=== PATIENT | female | born 1960 ===

== ENCOUNTER 2020-03-15 16:38 | Inpatient (IN) | payer BC, SELFPAY ==
[2020-03-15] VITALS (7 sets, daily range): BP systolic 127–169; BP diastolic 66–100; PULSE 94–125; RESP 18–25; TEMP 36.2–36.8; O2SAT 94–100
--- NOTE | ~2020-03-15 | CT_ITS ---
EXAMINATION: CT brain wo con EXAM DATE: 03/15/2020 20:55 INDICATION: Altered mental status, auditory and visual hallucinations. TECHNIQUE: Spiral CT of the head was performed without contrast. Axial, coronal and sagittal images were reviewed. The dose-length product (DLP) for this examination was 605.33 mGy-cm. The exposure w as tailored according to patient size, and iterative reconstruction (ASIR) was used as additional dos e reduction technique. There is no prior study for comparison. FINDINGS: There is no acute intraparenchymal hemorrhage. No evidence of intraparenchymal brain mass lesion. No evidence of acute infarction. There is no mass effect or midline shift. The ventricles are normal in size. There are no extra-axial collections. There are no acute calvarial fractures. T he orbits are unremarkable. Soft tissue is unremarkable. The visualized sinuses and mastoid air les ls are well aerated. IMPRESSION: 1. No acute intracranial findings. Reviewed, dictated and finalized at location A.
--- NOTE | ~2020-03-15 | US_ITS ---
EXAMINATION:US venous doppler LE BI INDICATION:Lower extremity edema TECHNIQUE: Multiple grayscale, color flow and Doppler images of the bilateral lower extremity deep ve nous systems were obtained and reviewed. COMPARISON:No prior studies for comparison. FINDINGS: The common femoral, superficial femoral and popliteal veins demonstrate normal respiratory variation, augmentation and compressibility. Color flow is also seen within the posterior tibial, pe roneal, greater saphenous and profunda veins. IMPRESSION: 1: No lower extremity deep venous thrombosis. Reviewed, dictated and finalized at location A.
--- NOTE | ~2020-03-15 | XR_ITS ---
EXAMINATION: XR chest 1V portable EXAM DATE: 03/15/2020 19:18 INDICATION: Auditory and visual hallucinations. TECHNIQUE: Portable AP frontal chest x-ray was obtained. There is no prior study for comparison. FINDINGS: The lungs are hyperinflated which can be seen with chronic obstructive pulmonary disease (a clinical diagnosis of functional impairment), but is not diagnostic of it. The lungs are clear. The re are no pleural effusions. The cardiomediastinal silhouette is within normal limits. There is no pneumothorax suspected. The bones and soft tissues are unremarkable. IMPRESSION: 1. No acute cardiopulmonary findings. 2. Hyperinflation. Reviewed, dictated and finalized at location A.
--- NOTE | ~2020-03-15 | CT_ITS ---
EXAMINATION: CTA chest PE protocol DATE: 03/16/2020 10:51 INDICATION: Shortness of breath TECHNIQUE: Computed tomography angiography (CTA) of the chest was performed with 100 mL Omnipaque-350 intravenous contrast timed to evaluate the pulmonary arteries. Coronal maximum intensity projection 3D-reconstructions were created by the technologist. The dose-length product (DLP) was 264.58 mGy-cm. Automated exposure control and iterative reconstruction technique were employed. COMPARISON: None. FINDINGS: The pulmonary arteries are well-opacified. No pulmonary embolism is identified. There is se jessica emphysema. There is an area of subpleural scarring in the superior segment of the right lower lo be. No pleural effusion or pneumothorax is identified. The heart size is normal. Calcified coronary a rtery atherosclerosis is noted. There is enlargement of the main and central pulmonary arteries, cons istent with pulmonary hypertension. A right hilar lymph node is borderline size cysts of the liver me asure 9 cm in the right hepatic lobe. There is enlargement of the left adrenal gland which maintains its adreniform shape. IMPRESSION: 1. No pulmonary embolism. 2. Severe emphysema. Reviewed, dictated and finalized at location B.
[2020-03-15 18:35] LABS: Basophils Percent Auto 0.6 % (0.2-1.2); Eosinophils Absolute Auto 0.1 K/mm3 (0-0.3); Eosinophils Percent Auto 2.2 % (0-4.4); Hematocrit 36.8 % (37.0-47.0); Hemoglobin 11.3 g/dL (12.0-15.0); Immature Granulocyte Absolute 0.01 K/mm3 (0.00-0.031); Immature Granulocyte Percent A 0.2 % (0-0.5); Lymphocytes Absolute Auto 0.75 K/mm3 (0.9-3.2); Lymphocytes Percent Auto 15.3 % (18.3-44.2); Mean Corpuscular HGB Conc 30.7 g/dl (32-36); Mean Corpuscular Hemoglobin 29.7 pg (26-34); Mean Corpuscular Volume 96.8 fl (80-100); Monocytes Absolute Auto 0.4 K/mm3 (0.1-0.6); Monocytes Percent Auto 7.8 % (2.6-8.5); Neutrophils Absolute Auto 3.6 K/mm3 (1.3-6.7); Neutrophils Percent Auto 73.9 % (45.5-73.1); Platelet Count Result 141 k/mm3 (150-375); White Blood Count 4.9 K/mm3 (4.5-10.0)
[2020-03-15 18:49] LABS: Ethanol < 10 mg/dL (<10)
[2020-03-15 18:50] LABS: Alanine Aminotransferase 13 U/L (4-35); Albumin Level 4.3 g/dL (3.5-5.1); Alkaline Phosphatase 76 U/L (38-126); Anion Gap 5.99999 mmol/L (8-16); Aspartate Amino Transferase 23 U/L (14-36); Bilirubin,Total 0.4 mg/dL (0.2-1.3); Blood Urea Nitrogen 12 mg/dL (7-17); Calcium 9.3 mg/dL (8.4-10.2); Carbon Dioxide > 40 mmol/L (22-30); Chloride 86 mmol/L (98-107); Estimated Glomerular Filt Rate > 60; Glucose 131 mg/dL (65-105); Potassium 4.2 mmol/L (3.4-5.0); Sodium 132 mmol/L (137-145)
--- NOTE | 2020-03-15 19:02 | ED.AMS ---
HPI - Altered Mental Status General Chief Complaint: Altered Mental Status Stated Complaint: Hallucinations Time Seen by Provider: 03/15/20 19:01 History of Present Illness HPI narrative: Not doing well for the past week. Her daughter reports that she has not been eating she has also been seeing and hearing things that are not there. She reports feeling weak and admits to seeing things. No chest pain, Headaches, nausea, vomiting, fever, dysuria. Related Data Home Medications Medication Instructions Recorded Confirmed Combivent Respimat 1 puff INHALATION DAILY 03/16/20 03/16/20 albuterol sulfate [ProAir HFA] 2 puff INHALATION Q6H 03/16/20 03/16/20 azelastine 2 spray INTRANASAL DAILY 03/16/20 03/16/20 budesonide-formoterol 1 puff INHALATION DAILY 03/16/20 03/16/20 fluticasone propion-salmeterol 1 inh INHALATION DAILY 03/16/20 03/16/20 [Wixela Inhub] furosemide 20 mg PO DAILY 03/16/20 03/16/20 lisinopril 20 mg PO DAILY 03/16/20 03/16/20 potassium chloride 10 meq PO DAILY 03/16/20 03/16/20 simvastatin 20 mg PO DAILY 03/16/20 03/16/20 Allergies Allergy/AdvReac Type Severity Reaction Status Date / Time No Known Allergies Allergy Unverified 07/08/16 13:34 Review of Systems Review of Systems: All systems reviewed & are unremarkable except as noted in HPI and below Constitutional: Constitutional: Denies fever(s) and Reports weakness ENT: Reports dizziness Cardiovascular: Cardiovascular: Denies chest pain Respiratory: Respiratory: Reports dyspnea Gastrointestinal: Gastrointestinal: Denies abdominal pain and Denies nausea Genitourinary: Genitourinary: Denies dysuria Neurologic: Denies headache(s) and Denies focal weakness [facility] Past Medical History Medical History Chronic respiratory failure with hypoxia, on home O2 therapy COPD (chronic obstructive pulmonary disease) DVT (deep venous thrombosis) Latent tuberculosis Surgical History Surgical History Hx of cholecystectomy Family History Family History Mother Diabetes mellitus, Onset Age: 75 Cerebrovascular accident, Onset Age: 75 Father , of pneumonia Diabetes mellitus, Onset Age: 79 Sibling Dementia Cerebrovascular accident Diabetes mellitus Social History Social History Social History: The patient is a former smoker. She smoked up to 2 packs of cigarettes per day for 42 years. She quit smoking in July 2017. She was never much of a drinker. She has not drink any alcohol in several years. She denies illicit substance use. Primary care physician: Dr. Damien Keyes Code status: full code Smoking status: Former smoker Smoking end date: 07/07/17 Alcohol intake: never Substance use: never Additional living arrangements comments: she lives at home with her . Her daughter and 2 grandchildren lives with them and helps them out as her requires significant care. she also has another daughter with 4 other Grandchildren that live close by. 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
[2020-03-15 19:16] LABS: Add Urine Microscopic? YES; Appearance Urine Clear (Clear); Bilirubin Urine Negative (Negative); Blood Urine Negative (Negative); Color Urine Yellow (Yellow); Glucose Urine UA Negative (Negative); Ketones Urine Negative (Negative); Leukocyte Esterase Ur Negative LEU/UL (Negative); Mucus Urine Rare /lpf; Nitrate Urine Negative (Negative); Protein Urine Negative (Negative); RBC Urine 0-2 /hpf (0-2); Specific Grav Ur 1.015 (1.001-1.035); Squamous Epithelial Cell Urine Rare /hpf (Few); WBC Urine 0-3 /hpf
[2020-03-15 19:20] LABS: Prothrombin Time 13.1 Seconds (11.1-14.7)
[2020-03-15 19:21] LABS: Partial Thromboplastin Time 28.9 SECONDS (22.3-36.8)
[2020-03-15 19:29] LABS: Amphetamine Screen Urine Negative (Negative); Barbiturate Screen Urine Negative (Negative); Benzodiazepines Screen Urine Negative (Negative); Cannabinoid Screen Urine Negative (Negative); Cocaine Screen Urine Negative (Negative); Methadone Screen Urine Negative (Negative); Opiate Screen Urine Negative (Negative); Phencyclidine Screen Urine Negative (Negative)
[2020-03-15 19:45] LABS: Base Excess ABG 12.9 mEq/l (+/-2.0); Fractional Inspired Oxygen 32 %; HCO3 ABG 41.8 mEq/l (22.0-26.0); Oxygen Content ABG 15.6 %vol (16.0-22.0); Oxygen Saturation ABG 98.2 % (95.0-100.0); Oxyhemoglobin 97.4 % THb (90.0-100.0); PO2 ABG 129.6 mmHg (80.0-100.0); PO2 FiO2 Ratio Arterial Blood 4.05 %; Total Hemoglobin 11.2 g/dL (12.0-18.0); pH ABG 7.327 (7.350-7.450)
[2020-03-15 19:49] LABS: Device NASAL CANNULA; Modified Allen's Test Pass; PCO2 ABG 81.7 mmHg (35.0-45.0); Site Drawn RIGHT RADIAL
[2020-03-15] MEDS: SODIUM CHLORIDE 0.9% IV 500 ML 999 ML IV CONT (20:25)
[2020-03-15] MEDS: ALBUTEROL SULFATE NEB 2.5 MG/0.5 ML INH 10 MG INHALATION (22:17)
[2020-03-15] MEDS: IPRATROPIUM BR 0.02% INH SOLN 0.5 MG/2.5 ML VIAL 1 MG INHALATION (22:18)
[2020-03-15] MEDS: methylPREDNISolone SOD SUCC 125 MG VIAL IV PUSH (22:34)
--- NOTE | 2020-03-15 23:58 | ADMGEN ---
This patient, Ban Smith, was admitted to IMU Room 211-01 aat 2349. Patient/family oriented to hospital policies and general routines including ID bracelet, bed and alarms, visiting hours, pain management, procedures, bathroom and other care routines, personal items, smoking policy, room service/diet, and visiting hours. Valuables list has been completed. Information on how to activate the Rapid Response Team has been discussed. Patient/Family are encouraged to report perceived risks to care and to ask questions if they do not understand what they are told or what they should do.
[2020-03-16] VITALS (28 sets, daily range): BP systolic 118–142; BP diastolic 56–80; PULSE 58–138; RESP 18–24; TEMP 35.8–37.1; O2SAT 94–100; BMI 29.1
--- NOTE | 2020-03-16 | ECHO_ITS ---
Patient Info Name: Ban Smith Age: 59 years : 1960 Gender: Female Ht: 68 in Wt: 199 lbs BSA: 2.11 m2 HR: 132 bpm BP: 137 / 59 mmHg Heart Rhythm: Tachycardia Technical Quality: Fair Exam Date: 03/16/2020 2:00 PM Exam Location: [facility] Pulmonary Exam Room: 211 Patient Status: Inpatient Admit Date: 03/15/2020 Staff Ordering Physician: Gabriele Pratt MD Program Director/Air Personality: Silvia Leung RDCS Attending Provider: Stacey Starr DO Referring Physician: Santa LARIOS; Exam Type: CA echo doppler color flow Study Info Indications - copd edema sob Complete two-dimensional, color flow and Doppler transthoracic echocardiogram is performed. Summary 1. Complete two-dimensional, color flow and Doppler transthoracic echocardiogram is performed. 2. The left ventricular diastolic function is indeterminate due to tachycardia. 3. Left ventricular chamber dimension is normal. 4. Left ventricular systolic function is normal, estimated at >70%. 5. There is trace tricuspid valve regurgitation. 6. No pulmonary hypertension, estimated pulmonary arterial systolic pressure is 33 mmHg. Left Ventricle The left ventricular diastolic function is indeterminate due to tachycardia. Left ventricular chamber dimension is normal. Left ventricular systolic function is normal, estimated at >70%. There is no increased left ventricular wall thickness. Right Ventricle Right ventricular chamber dimension is normal. Right ventricular systolic function is normal. Left Atria Left atrial chamber dimension is normal. Right Atria Right atrial chamber dimension is normal. Aortic Valve The aortic valve is not well visualized. There is no aortic valve stenosis. There is no aortic valve regurgitation. Pulmonic Valve The pulmonic valve is not well visualized. Mitral Valve The mitral valve has normal leaflets. There is trace mitral valve regurgitation. Tricuspid Valve The tricuspid valve leaflets are normal. There is trace tricuspid valve regurgitation. No pulmonary hypertension, estimated pulmonary arterial systolic pressure is 33 mmHg. Pericardium/Pleural The pericardium appears normal. There is no pericardial effusion. Inferior Vena Cava Normal inferior vena cava with >50% collapse upon inspiration consistent with normal right atrial pressure, 5 mmHg. Aorta The aortic root size at the sinus of Valsalva is normal. Left Ventricular Outflow Tract Name Value Normal LVOT 2D LVOT Diameter 2.0 cm LVOT Doppler LVOT Peak Gradient 5 mmHg LVOT Mean Gradient 4 mmHg LVOT VTI 22 cm LVOT VTI/AV VTI Ratio 1.0 LVOT Stroke Volume 68 ml LVOT CO 17.6 l/min LVOT CI 8.4 l/min/m2 Pulmonic Valve Name Value Normal
[2020-03-16] MEDS: ALBUTEROL SULFATE NEB 2.5 MG/0.5 ML INH 5 MG INHALATION ×2 (02:36→08:48)
[2020-03-16] MEDS: IPRATROPIUM BR 0.02% INH SOLN 0.5 MG/2.5 ML VIAL INHALATION ×4 (02:37→21:15)
--- NOTE | 2020-03-16 02:42 | PM.IMHP ---
H&P: HPI History of Present Illness Date/Time: 03/16/20 02:42 Chief complaint: seeing and hearing things that are not there Narrative: Ban Smith is a 59 year old female with a past medical history of COPD and hypertension who presented to the ER with auditory and visual hallucinations.The patient reports that she has a blanket with her grandchildren's pitchers on it at home. She was C the pictures of her grandchildren, out of the blanket in get extremely large and twisted in appearance. She had been having the hallucinations on and off for about a week but they had been particularly vivid in the last 2 days. she was hopeful that hallucinations would get better during the day but instead the hallucinations does seem to progress. Now that she has been on the BiPAP from several hours her mentation has improved. she states that this time that she does not remember anything after she arrived to the ER until I woke her up this morning. She denies having any cough. She has not had any fevers or chills. she denies having any increased shortness of breath. She has become progressively more weak and has been having some falls. She has not hit her head or passed out. At the time of my evaluation the patient was alert and oriented times 4. history of still slightly limited as his difficulty here the patient's speak over the BiPAP. She reports that she is always on 3 L of oxygen. She has been on home O2 since around 2018 when she was hospitalized for pneumonia and DVTs. She denies any nausea or vomiting. She reports that since she was so restless at home and confused that she really has not eaten for the last 2 days. She reports that she feels hungry now in with like to eat. She usually does not have difficulty with urinary incontinence but did have an episode of urinary incontinence while I was at bedside. She denies any dysuria or hematuria. She has not had any recent ill contacts. She lives in the home with multiple family members but she herself has not been leaving the house. she reports that she has gotten so weak that she has started using a wheelchair. Review of Systems Review of Systems: Narrative: 12 systems were reviewed with pertinent positives and negatives per HPI. Except as documented in the HPI, all other systems were reviewed and are negative. [facility] Past Medical History Medical History (Updated 09/10/20 @ 05:38 by Stacey Starr DO) Chronic respiratory failure with hypoxia, on home O2 therapy COPD (chronic obstructive pulmonary disease) DVT (deep venous thrombosis) Latent tuberculosis Surgical History Surgical History (Updated 03/16/20 @ 05:16 by Stacey Starr DO) Hx of cholecystectomy Family History Family History (Updated 03/16/20 @ 04:56 by Stacey Starr DO) Mother Diabetes mellitus, Onset Age: 75 Cerebrovascular accident, Onset Age: 75 Father , of pneumonia Diabetes mellitus, Onset Age: 79 Sibling Dementia Cerebrovascular accident Diabetes mellitus Social History Social History (Updated 03/16/20 @ 05:26 by Stacey Starr DO) Social History: The patient is a former smoker. She smoked up to 2 packs of cigarettes per day for 42 years. She quit smoking in July 2017. She was never much of a drinker. She has not drink any alcohol in several years. She denies illicit substance use. Primary care physician: Dr. Damien Keyes Code status: full code Smoking status: Former smoker Smoking end date: 07/07/17 Alcohol intake: never Substance use: never Additional living arrangements comments: she lives at home with her . Her daughter and 2 grandchildren lives with them and helps them out as her requires significant care. she also has another daughter with 4 other Grandchildren that live close by. 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
[2020-03-16 03:17] LABS: Alveolar/Arterial O2 Gradient 64.6 mmHg; Base Excess ABG 9.5 mEq/l (+/-2.0); Carboxyhemoglobin 0.3 % THb (0-2.0); Fractional Inspired Oxygen 30 %; HCO3 ABG 36.8 mEq/l (22.0-26.0); Methemoglobin ABG 0.3 %THb (0-1.5); Oxygen Content ABG 14.9 %vol (16.0-22.0); Oxygen Saturation ABG 93.6 % (95.0-100.0); Oxyhemoglobin 93.7 % THb (90.0-100.0); PO2 ABG 72.3 mmHg (80.0-100.0); PO2 FiO2 Ratio Arterial Blood 2.41 %; Reduced Hemoglobin 5.7 %THb (0-5.0); Total Hemoglobin 11.3 g/dL (12.0-18.0); pH ABG 7.368 (7.350-7.450)
[2020-03-16 03:19] LABS: Device BIPAP; Modified Allen's Test Pass; PCO2 ABG 65.5 mmHg (35.0-45.0); Site Drawn RIGHT RADIAL
[2020-03-16 03:20] LABS: Expiratory Pressure 6 cmH2O; Inspiratory Pressure 12 cmH2O
[2020-03-16] MEDS: methylPREDNISolone SOD SUCC 125 MG VIAL 60 MG IV PUSH ×2 (05:19→15:57)
[2020-03-16] MEDS: ENOXAPARIN 100 MG/ML SYRINGE 90 MG SUB-Q (06:22)
[2020-03-16 07:00] LABS: Hemoglobin 10.5 g/dL (12.0-15.0); Mean Corpuscular HGB Conc 31.8 g/dl (32-36); Mean Corpuscular Hemoglobin 29.8 pg (26-34); Mean Corpuscular Volume 93.8 fl (80-100); Mean Platelet Volume 9.2 fl (7.4-10.4); Platelet Count Result 118 k/mm3 (150-375); Red Blood Count 3.52 M/mm3 (4.2-5.4); Red Cell Distribution Width 11.9 % (11.5-14.5); White Blood Count 3.4 K/mm3 (4.5-10.0)
[2020-03-16 07:11] LABS: Anion Gap 5 mmol/L (8-16); Blood Urea Nitrogen 12 mg/dL (7-17); Carbon Dioxide 37 mmol/L (22-30); Chloride 90 mmol/L (98-107); Estimated CRCL calculation 101 ml/min; Estimated Glomerular Filt Rate > 60; Glucose 143 mg/dL (65-105); Potassium 4.4 mmol/L (3.4-5.0); Sodium 132 mmol/L (137-145)
[2020-03-16 07:39] LABS: D Dimer 0.71 ug/mL (<0.48)
[2020-03-16] MEDS: SIMVASTATIN 20 MG TABLET PO (08:49)
[2020-03-16] MEDS: METOPROLOL SUCCINATE EXT REL 25 MG TABCR PO (08:49)
[2020-03-16] MEDS: POTASSIUM CHLORIDE 10 MEQ TABLET.ER PO (08:49)
[2020-03-16] MEDS: AZELASTINE HCL NASAL 0.1% 137 MCG/SPR 30 ML BTL 2 SPRAY NASAL (08:49)
[2020-03-16] MEDS: lisinopriL 20 MG TABLET PO (08:49)
[2020-03-16] MEDS: FUROSEMIDE 20 MG TABLET PO (08:49)
--- NOTE | 2020-03-16 09:24 | PC.NURSE ---
Addendum entered by Maribel Haas RN 03/16/20 09:26: JOSEPH VILLARREAL/Earl HAAS RN Original Note: PT WAS STRAIGHT CATHED Friday AT 1850 FOR URINE SAMPLE. 300MLS OBTAINED.
--- NOTE | 2020-03-16 15:11 | PM.IMPN ---
Progress Note: A&P Assessment and Plan (1) Acute on chronic respiratory failure with hypoxia and hypercapnia: Code(s): J96.21 - Acute and chronic respiratory failure with hypoxia; J96.22 - Acute and chronic respiratory failure with hypercapnia Status: Acute Assessment and Plan: The patient's ABG has improved with BiPAP use. saturating well and mentating well now on 3 L nasal cannula Patient may use the BiPAP intermittently after that time. (2) COPD exacerbation: Code(s): J44.1 - Chronic obstructive pulmonary disease with (acute) exacerbation Status: Acute Assessment and Plan: Will continue IV Solu-Medrol scheduled albuterol and Atrovent. no antibiotics since there is no obvious indication of infectious process (3) Bilateral lower extremity edema: Code(s): R60.0 - Localized edema Status: Acute Assessment and Plan: I suspect that this is due to chronic lymphedema. It sounds as if the patient has had difficulty with swelling in her legs since 2018. It is unclear at this time if her lower extremity has worsened from baseline. bilateral lower extremity venous Dopplers are negative for DVT. got 1 dose of Lovenox 1 milligram/kilogram. D-dimer was slightly elevated and with negative venous Doppler CTA of the chest was performed which revealed no pulmonary emboli. echocardiogram is pending (4) Tachycardia: Code(s): R00.0 - Tachycardia, unspecified Status: Acute Assessment and Plan: likely in part due to albuterol use. check echo and resumed the patient's home metoprolol today.. Subjective Date/time seen: 03/16/20 15:11 Interval history: Date of visit 03/16. 59-year-old white female COPD and chronic peripheral edema admitted with altered mental status found to be hypoxic hypercapnic with acute on chronic respiratory failure. Admitted for the same and with aggressive pulmonary treatment steroids updraft and BiPAP has improved. Feels much better this a.m.. Minimal cough no fever chills Exam Narrative: Exam Narrative: PHYSICAL EXAM: blood pressure 124/66 pulse is 110 saturating 100% on 3 L nasal cannula now afebrile General: no acute distress, lying with the head of bed 35?, HEENT: neck supple pupils equal reactive with sclera anicteric Respiratory: faint end-expiratory wheezing bilaterally, Cardiovascular: sinus tachycardia, 2+ bilateral radial pulses Gastrointestinal: soft, nontender, positive bowel Skin: no breakdown rashes Musculoskeletal: lymphedema bilateral lower extremities Neurological: alert and oriented times 3-4, speech is clear Psychiatric: appropriate mood and affect, pleasant and cooperative : incontinent of urine, depends in place Hematologic/lymphatic: no petechiae, bruising or significant lymphadenopathy Objective Data Vital Signs Vital Signs: Vital Signs - 24 hr 03/15/20 18:30 03/15/20 20:35 03/15/20 22:05 Temperature 36.6 C Pulse Rate 115 H 94 121 H Respiratory Rate 22 H 21 H 25 H Blood Pressure 140/66 130/80 Pulse Oximetry 100 99 97 03/15/20 22:19 03/15/20 23:49 03/15/20 23:55 Temperature 36.2 C L 36.8 C Pulse Rate 117 H 120 H 112 H Respiratory Rate 23 H 23 H 25 H Blood Pressure 127/66 130/80 Pulse Oximetry 99 96 03/15/20 23:56 03/16/20 00:00 03/16/20 02:00 Temperature Pulse Rate 102 H 106 H 101 H Respiratory Rate 24 H 24 H Blood Pressure Pulse Oximetry 94 94 03/16/20 02:37 03/16/20 02:46 03/16/20 04:00 Temperature Pulse Rate 100 97 115 H Respiratory Rate 21 H 20 19 Blood Pressure Pulse Oximetry 96 100 03/16/20 04:08 03/16/20 06:00 03/16/20 08:00 Temperature 36.2 C L Pulse Rate 109 H 116 H 122 H Respiratory Rate 19 Blood Pressure 142/70 H Pulse Oximetry 100 03/16/20 08:16 03/16/20 08:49 03/16/20 08:53 Temperature 36.4 C L Pulse Rate 123 H 125 H Respiratory Rate 20 Blood Pressure 133/80 Pulse Oximetry 96 98
[2020-03-17] VITALS (15 sets, daily range): BP systolic 137–150; BP diastolic 71–77; PULSE 86–131; RESP 16–20; TEMP 36.3–36.7; O2SAT 90–97
[2020-03-17] MEDS: methylPREDNISolone SOD SUCC 125 MG VIAL 60 MG IV PUSH ×2 (00:07→09:17)
[2020-03-17 04:30] LABS: Hematocrit 32.2 % (37.0-47.0); Hemoglobin 10.4 g/dL (12.0-15.0); Immature Granulocyte Absolute 0.02 K/mm3 (0.00-0.031); Immature Granulocyte Percent A 0.5 % (0-0.5); Immature Reticulocyte Fraction 8.2 % (3.0-15.9); Lymphocytes Absolute Auto 0.37 K/mm3 (0.9-3.2); Lymphocytes Percent Auto 8.4 % (18.3-44.2); Mean Corpuscular HGB Conc 32.3 g/dl (32-36); Mean Corpuscular Hemoglobin 29.8 pg (26-34); Mean Corpuscular Volume 92.3 fl (80-100); Mean Platelet Volume 9.2 fl (7.4-10.4); Monocytes Absolute Auto 0.1 K/mm3 (0.1-0.6); Monocytes Percent Auto 3.2 % (2.6-8.5); Neutrophils Absolute Auto 3.9 K/mm3 (1.3-6.7); Neutrophils Percent Auto 87.9 % (45.5-73.1); Platelet Count Result 143 k/mm3 (150-375); Red Blood Count 3.49 M/mm3 (4.2-5.4); Red Cell Distribution Width 11.8 % (11.5-14.5); Reticulocyte Hemoglobin Conten 32.5 pg (28.2-35.7); Reticulocyte Percent 2.02 % (0.7-4.3); Reticulocytes Absolute 0.07 B/L (32.2-175.7); White Blood Count 4.4 K/mm3 (4.5-10.0)
[2020-03-17 04:53] LABS: Anion Gap 1.99999 mmol/L (8-16); Blood Urea Nitrogen 21 mg/dL (7-17); Calcium 8.8 mg/dL (8.4-10.2); Carbon Dioxide > 40 mmol/L (22-30); Chloride 89 mmol/L (98-107); Estimated CRCL calculation 99 ml/min; Estimated Glomerular Filt Rate > 60; Glucose 163 mg/dL (65-105); Lactate Dehydrogenase 329 U/L (313-618); Potassium 4.2 mmol/L (3.4-5.0); Sodium 131 mmol/L (137-145)
[2020-03-17 05:30] LABS: Thyroid Stimulating Hormone Reflex 0.081 uIU/mL (0.465-4.68)
[2020-03-17 06:39] LABS: Free T4 Free Thyroxine Reflex 1.44 ng/dL (0.78-2.19)
[2020-03-17] MEDS: IPRATROPIUM BR 0.02% INH SOLN 0.5 MG/2.5 ML VIAL INHALATION ×3 (08:02→19:01)
[2020-03-17 08:43] LABS: Total Triiodothyronine (T3) 0.84 NG/ML (0.97-1.69)
[2020-03-17] MEDS: FUROSEMIDE 20 MG TABLET PO (09:16)
[2020-03-17] MEDS: POTASSIUM CHLORIDE 10 MEQ TABLET.ER PO (09:16)
[2020-03-17] MEDS: ACETAMINOPHEN 325 MG TABLET 650 MG PO ×2 (09:16→19:02)
[2020-03-17] MEDS: lisinopriL 20 MG TABLET PO (09:16)
[2020-03-17] MEDS: ENOXAPARIN 40 MG/0.4 ML SYRINGE SUB-Q (09:17)
[2020-03-17] MEDS: METOPROLOL SUCCINATE EXT REL 50 MG TABCR PO (09:17)
--- NOTE | 2020-03-17 12:16 | PC.NURSE ---
This patient, Ban Smith, was received from [IMU ] on 03/17/20 at 1215. Personal belongings list checked and signed. Patient/family oriented to unit policies and routines
--- NOTE | 2020-03-17 12:19 | PC.NURSE ---
This patient, Ban Smith, was transferred to [facility] on 03/17/20 at 1210. Personal belongings sent with patient. Belongings list checked and signed with receiving. Report given to NATHAN Lynch. Appropriate documentation sent with patient.
--- NOTE | 2020-03-17 15:30 | PM.IMPN ---
Progress Note: A&P Assessment and Plan (1) Acute on chronic respiratory failure with hypoxia and hypercapnia: Code(s): J96.21 - Acute and chronic respiratory failure with hypoxia; J96.22 - Acute and chronic respiratory failure with hypercapnia Status: Acute Assessment and Plan: The patient's ABG improved with BiPAP use and transitioned to NC . saturating well and mentating well now on 3 L nasal cannula . (2) COPD exacerbation: Code(s): J44.1 - Chronic obstructive pulmonary disease with (acute) exacerbation Status: Acute Assessment and Plan: Will continue IV Solu-Medrol with further taper and po 03/18 , continue scheduled albuterol and Atrovent. no antibiotics since there is no obvious indication of infectious process,, - CTA (3) Bilateral lower extremity edema: Code(s): R60.0 - Localized edema Status: Acute Assessment and Plan: I suspect that this is due to chronic lymphedema. It sounds as if the patient has had difficulty with swelling in her legs since 2018. It is unclear at this time if her lower extremity has worsened from baseline. bilateral lower extremity venous Dopplers are negative for DVT. got 1 dose of Lovenox 1 milligram/kilogram. D-dimer was slightly elevated and with negative venous Doppler CTA of the chest was performed which revealed no pulmonary emboli. echocardiogram normal EF with no Pul HTN and diastolic function inderterminate (4) Tachycardia: Code(s): R00.0 - Tachycardia, unspecified Status: Acute Assessment and Plan: resumed the patient's home metoprolol and increased to 50 qd. THS decreased with normal T4 so could be subclinical hyperthyroid too.. Subjective Date/time seen: 03/17/20 15:30 Interval history: Date of visit 03/17. 59-year-old white female COPD and chronic peripheral edema admitted with altered mental status found to be hypoxic hypercapnic with acute on chronic respiratory failure. Admitted for the same and with aggressive pulmonary treatment steroids updraft and BiPAP has improved. Feels much better this a.m.. Minimal cough no fever chills. Mentally clear Exam Narrative: Exam Narrative: PHYSICAL EXAM: blood pressure 150/76 pulse is 96 saturating 97% on 3 L nasal cannula now afebrile General: no acute distress, lying with the head of bed 35?, HEENT: neck supple pupils equal reactive with sclera anicteric Respiratory: clear distant BS, Cardiovascular: sinus tachycardia, 2+ bilateral radial pulses Gastrointestinal: soft, nontender, positive bowel Skin: no breakdown rashes Musculoskeletal: lymphedema bilateral lower extremities Neurological: alert and oriented times 4, speech is clear Psychiatric: appropriate mood and affect, pleasant and cooperative : incontinent of urine, depends in place Objective Data Vital Signs Vital Signs: Vital Signs - 24 hr 03/16/20 15:59 03/16/20 16:00 03/16/20 16:58 Temperature 36.2 C L Pulse Rate 124 H 125 H 120 H Respiratory Rate 22 H Blood Pressure 118/58 L Pulse Oximetry 100 03/16/20 17:57 03/16/20 19:53 03/16/20 20:00 Temperature 37.1 C Pulse Rate 126 H 121 H 115 H Respiratory Rate 20 20 Blood Pressure 135/76 Pulse Oximetry 97 97 03/16/20 21:18 03/16/20 22:00 03/16/20 23:57 Temperature 35.8 C L Pulse Rate 80 120 H 58 L Respiratory Rate 24 H 18 Blood Pressure 120/56 L Pulse Oximetry 97 03/17/20 00:00 03/17/20 02:00 03/17/20 04:00 Temperature Pulse Rate 110 H 99 105 H Respiratory Rate 18 18 Blood Pressure Pulse Oximetry 97 94 03/17/20 04:28 03/17/20 06:00 03/17/20 08:00 Temperature 36.3 C L 36.6 C Pulse Rate 105 H 86 116 H Respiratory Rate 18 18 Blood Pressure 137/76 150/77 H Pulse Oximetry 94 97 03/17/20 08:03 03/17/20 08:13 03/17/20 09:17 Temperature Pulse Rate 108 H 106 H 131 H Respiratory Rate 18 18 Blood Pressure Pulse Oximetry 95 03/17/20 14
[2020-03-17] MEDS: predniSONE 20 MG TABLET PO (18:21)
[2020-03-18] VITALS (7 sets, daily range): BP systolic 131; BP diastolic 74; PULSE 88–109; RESP 18–20; TEMP 36.8; O2SAT 93–98
[2020-03-18] MEDS: IPRATROPIUM BR 0.02% INH SOLN 0.5 MG/2.5 ML VIAL INHALATION ×2 (01:56→08:00)
[2020-03-18] MEDS: predniSONE 20 MG TABLET 40 MG PO (08:29)
[2020-03-18] MEDS: AZELASTINE HCL NASAL 0.1% 137 MCG/SPR 30 ML BTL 2 SPRAY NASAL (08:29)
[2020-03-18] MEDS: FUROSEMIDE 20 MG TABLET PO (08:30)
[2020-03-18] MEDS: lisinopriL 20 MG TABLET PO (08:30)
[2020-03-18] MEDS: SIMVASTATIN 20 MG TABLET PO (08:30)
[2020-03-18] MEDS: ENOXAPARIN 40 MG/0.4 ML SYRINGE SUB-Q (08:30)
[2020-03-18] MEDS: METOPROLOL SUCCINATE EXT REL 50 MG TABCR PO (08:31)
[2020-03-18] MEDS: POTASSIUM CHLORIDE 10 MEQ TABLET.ER PO (08:32)
--- NOTE | 2020-03-18 11:03 | PC.NURSE ---
flu shot given upon discharge.
--- NOTE | 2020-03-19 18:05 | PM.DS ---
DS: Admitting Diagnosis Admitting Diagnosis Admitting Diagnosis: seeing and hearing things that are not there DS: Discharge Diagnosis Discharge Diagnosis (1) Acute on chronic respiratory failure with hypoxia and hypercapnia: Code(s): J96.21 - Acute and chronic respiratory failure with hypoxia; J96.22 - Acute and chronic respiratory failure with hypercapnia Status: Acute Assessment and Plan: The patient's ABG improved with BiPAP use and transitioned to NC . saturating well and mentating well now on 3 L nasal cannula her usual rate and saturating 98% at discharge . (2) COPD exacerbation: Code(s): J44.1 - Chronic obstructive pulmonary disease with (acute) exacerbation Status: Acute Assessment and Plan: IV Solu-Medrol with further taper and po 03/18 for 1 week taper post discharge , continued scheduled albuterol and Atrovent. no antibiotics since there is no obvious indication of infectious process,, negative CTA for PE (3) Bilateral lower extremity edema: Code(s): R60.0 - Localized edema Status: Acute Assessment and Plan: I suspect that this is due to chronic lymphedema. It sounds as if the patient has had difficulty with swelling in her legs since 2018. It is unclear at this time if her lower extremity has worsened from baseline. bilateral lower extremity venous Dopplers are negative for DVT. and CTA of the chest was negative For PE echocardiogram normal EF with no Pul HTN and diastolic function inderterminate (4) Tachycardia: Code(s): R00.0 - Tachycardia, unspecified Status: Acute Assessment and Plan: resumed the patient's home metoprolol XL and increased to 50 qd. THS decreased with normal T4 so could be subclinical hyperthyroid too.. DS: Summary Hospital Course Hospital Course: 59-year-old white female admitted with hallucinations. She is found to be hypercarbic and hypoxic with acute on chronic respiratory failure. With short course of BiPAP but and treating for COPD with exacerbation with steroids and updrafts her symptoms resolved and never returned. She will have a short taper oral prednisone on discharge. Pulse remained close to 100 or above and metoprolol XL was increased to 50 daily. Free T4 was normal but TSH was low normal suggest and possible subclinical hyperthyroidism. Echo revealed normal ejection fraction with no pulmonary hypertension but diastolic function was indeterminate due to tachycardia she will follow-up Dr. mars's within the next 2 weeks Time Spent with Patient Time attestation: Total time spent providing and/or coordinating discharge services: 35 minutes Exam Narrative: Exam Narrative: condition on discharge blood pressure 130/74 pulse is 90 saturating 98% on 3 L nasal cannula lungs clear prolonged expiratory phase but no wheezing or consolidation CV tachy but no murmurs abdomen soft nontender extremities chronic almost lymphedema type picture neuro alert oriented x4 and no further hallucinations after admission Discharge Plan Discharge Attending physician on discharge: Gabriele Pratt Discharging Clinician: Gabriele Pratt Patient Disposition: Home, Self-Care Activity: as tolerated Diet: low sodium Patient Instructions: Antibiotic Form, Heart Failure (ED), Emphysema (DC) Stand Alone Forms: General Discharge Information Follow-up/Referrals: Harms,Damien Gonzalez M.D. [Primary Care Provider] - 2 Weeks Discharge Medications: New metoprolol succinate 50 mg Tablet Extended Release 24 Hr 50 mg PO DAILY Qty: 30 RF: 0 prednisone 20 mg tablet 20 mg PO DIRECTED Qty: 9 RF: 0 Continued fluticasone propion-salmeterol [Wixela Inhub] 250-50 mcg/dose blister with device 1 inh INHALATION DAILY RF: 0 lisinopril 20 mg tablet 20 mg PO DAILY RF: 0 potassium chloride 10 mEq tablet extended release 10 meq PO DAILY RF: 0 simvastatin 2
== END 2020-03-18 12:08 | disposition home or self-care (01) | DRG 189 ==
LOC: ANHED 22:53 → ANHIMU 03-16 01:17 → ANH3MEDSUR 03-18 08:58 → ANHIMU 03-20 16:19
PROVIDERS: Emergency Medicine; Admitting Provider Internal Medicine; Emergency Provider Emergency Medicine; PCP Family Medicine; Visit Provider Internal Medicine
DX: J96.21 Acute and chronic respiratory failure with hypoxia (principal); J44.1 Chronic obstructive pulmonary disease with (acute) exacerbation; D61.818 Other pancytopenia; Z99.81 Dependence on supplemental oxygen; J96.22 Acute and chronic respiratory failure with hypercapnia; I89.0 Lymphedema, not elsewhere classified; R00.0 Tachycardia, unspecified; Z22.7 Latent tuberculosis; Z23 Encounter for immunization; Z87.891 Personal history of nicotine dependence; Z86.718 Personal history of other venous thrombosis and embolism
CPT/HCPCS: 36415; 36600; 70450; 71045; 71275; 80048; 80053; 80307; 81001; 82375; 82607; 82805; 83050; 83615; 84439; 84443; 84480; 85025; 85027; 85046; 85380; 85610; 85730; 90471; 90686; 93306; 93970; 94002; 94640; 94660; 97161; 97165; 97535; 99285; A9270; G0008; J1650; J2930; J7040; J7512; Q9967

== ENCOUNTER 2021-08-03 18:55 | Inpatient (IN) | payer OTHER, SELFPAY ==
--- NOTE | ~2021-08-03 | XR_ITS ---
EXAMINATION: XR chest 1V portable DATE: 08/04/2021 02:03 INDICATION: Shortness of breath. TECHNIQUE: A single frontal view of the chest was obtained. COMPARISON: Chest single view 03/15/2020, chest CT 03/16/2020 FINDINGS: The lungs are hyperexpanded with lucencies, consistent with emphysema. There are peripheral airspace opacities in the mid and lower lung zones. No pleural effusion or pneumothorax. The heart s ize is normal. IMPRESSION: 1. Airspace opacities in the peripheral mid and lower lung zones, consistent with mild pulmonary dhaval a versus pneumonia. 2. Severe emphysema. Reviewed, dictated and finalized at location A. TH ADVISOR IMPRESSION: 1. Airspace opacities in the peripheral mid and lower lung zones, consistent wi th mild pulmonary edema versus pneumonia. 2. Severe emphysema.
--- NOTE | ~2021-08-03 | CT_ITS ---
EXAMINATION: CT brain wo con DATE: 08/06/2021 13:19 INDICATION: Hallucinations. TECHNIQUE: Computed tomography (CT) of the head was performed without intravenous contrast. The mA wa s adjusted according to patient size. Iterative reconstruction technique was employed. The dose-lengt h product was 605.33 mGy-cm. COMPARISON: Head CT 03/15/2020 FINDINGS: There are scattered areas of low attenuation in the cerebral white matter. There is no intr acranial hemorrhage, acute infarction, or abnormal intracranial mass lesion. The ventricles are fer l in size. The paranasal sinuses are clear. The orbits are normal. The mastoid air cells are normal. IMPRESSION: 1. Stable mild nonspecific cerebral white matter disease, which likely represents chronic small vesse l ischemic disease. Reviewed, dictated and finalized at location A. S TENDER STAR SIGNAL IMPRESSION: 1. Stable mild nonspecific cerebral white matter disease, which likely represen ts chronic small vessel ischemic disease.
--- NOTE | ~2021-08-03 | XR_ITS ---
EXAMINATION: XR chest 2V DATE: 08/07/2021 15:53 INDICATION: Respiratory failure TECHNIQUE: frontal and lateral views of the chest were obtained. COMPARISON: Chest radiograph dated 08/04/[address] dated 03/16/2020 FINDINGS: Hyperexpansion of the lungs with increased lucency in the upper lung zones and retrocardiac clear spa ce with associated architectural distortion consistent with emphysema better appreciated on CT dated 03/16/20. Unchanged mild biapical pleural-parenchymal scarring. Mild peripheral reticular opacities at the bilateral lung bases. No pleural effusion or pneumothorax. Heart size is normal. Osteopenia with mild thoracic kyphosis and mild anterior wedging of T12 which appears chronic and at T10 which appea rs new since the prior CT. IMPRESSION: 1. Mild peripheral reticular opacities at the bilateral lung bases which could represent mild pulmona ry edema, atelectasis or pneumonia. 2. Severe emphysema. 3. Age-indeterminate T10 compression fracture with 20% anterior vertebral body likely loss which is n ew since 03/16/2020. Reviewed, dictated and finalized at location A. TAL FINISHER IMPRESSION: 1. Mild peripheral reticular opacities at the bilateral lung bases which could represent mild pulmonary edema, atelectasis or pneumonia. 2. Severe emphysema. 3. Age-indeterminate T10 compression fracture with 20% anterior vertebral body likely loss which is new since 03/16/2020.
[2021-08-03 19:02] VITALS: BP 142/71; PULSE 91; RESP 19; TEMP 37; O2SAT 99
[2021-08-04] VITALS (119 sets, daily range): BP systolic 94–138; BP diastolic 49–113; PULSE 60–109; RESP 13–28; TEMP 35.9–36.4; O2SAT 92–100
--- NOTE | 2021-08-04 01:17 | ECG_ITS ---
Measurements Intervals Coleman Rate: 98 P: 79 NM: 174 QRS: 75 QRSD: 92 T: 66 QT: 317 QTc: 405 Interpretive Statements SINUS RHYTHM MINIMAL Q WAVES- INF/LAT LEADS BASELINE ARTIFACT- I, II, III, AVR, AVL, AVF, V2-V5 BORDERLINE ECG Electronically Signed On 08-04-2021 7:56:36 ACCOUNTING REPRESENTATIVE by Callum Valencia D.O.
[2021-08-04 01:48] LABS: Alveolar/Arterial O2 Gradient 21.9 mmHg; Base Excess ABG 18.7 mEq/l (+/-2.0); Fractional Inspired Oxygen 34 %; HCO3 ABG 49.4 mEq/l (22.0-26.0); Oxygen Content ABG 16.6 %vol (16.0-22.0); Oxyhemoglobin 96.8 % THb (90.0-100.0); PO2 ABG 105.4 mmHg (80.0-100.0); Total Hemoglobin 12.1 g/dL (12.0-18.0); pH ABG 7.317 (7.350-7.450)
[2021-08-04 01:50] LABS: Device NASAL CANNULA; Liters per Minute 3.5 LPM; Modified Allen's Test Pass; PCO2 ABG 98.8 mmHg (35.0-45.0); Site Drawn LEFT RADIAL
[2021-08-04 01:53] LABS: Hematocrit 38.4 % (37.0-47.0); Hemoglobin 11.8 g/dL (12.0-15.0); Immature Granulocyte Absolute 0.02 K/mm3 (0.00-0.031); Immature Granulocyte Percent A 0.5 % (0-0.5); Lymphocytes Absolute Auto 0.31 K/mm3 (0.9-3.2); Lymphocytes Percent Auto 7.7 % (18.3-44.2); Mean Corpuscular HGB Conc 30.7 g/dl (32-36); Mean Corpuscular Hemoglobin 28.6 pg (26-34); Mean Corpuscular Volume 93.2 fl (80-100); Mean Platelet Volume 9.2 fl (7.4-10.4); Monocytes Absolute Auto 0.1 K/mm3 (0.1-0.6); Monocytes Percent Auto 1.5 % (2.6-8.5); Neutrophils Absolute Auto 3.6 K/mm3 (1.3-6.7); Neutrophils Percent Auto 90.3 % (45.5-73.1); Platelet Count Result 160 k/mm3 (150-375); Red Blood Count 4.12 M/mm3 (4.2-5.4); Red Cell Distribution Width 12.7 % (11.5-14.5)
[2021-08-04 02:13] LABS: Lactic Acid Reflex 0.7 mmol/L (0.7-2.1)
[2021-08-04 02:13] LABS: Magnesium 1.7 mg/dL (1.6-2.3)
[2021-08-04 02:15] LABS: Alanine Aminotransferase 19 U/L (4-35); Albumin Level 4.4 g/dL (3.5-5.1); Alkaline Phosphatase 68 U/L (38-126); Aspartate Amino Transferase 23 U/L (14-36); Bilirubin,Total 0.6 mg/dL (0.2-1.3); Blood Urea Nitrogen 25 mg/dL (7-17); Calcium 9.4 mg/dL (8.4-10.2); Carbon Dioxide > 40 mmol/L (22-30); Chloride 83 mmol/L (98-107); Estimated Glomerular Filt Rate > 60; Glucose 153 mg/dL (65-110); Potassium 4.7 mmol/L (3.4-5.0); Sodium 129 mmol/L (137-145)
[2021-08-04 02:23] LABS: NT Pro B Type Natriuretic Pept 386 pg/mL (5-100)
[2021-08-04 02:23] LABS: Add Urine Microscopic? YES; Appearance Urine Clear (Clear); Bilirubin Urine Negative (Negative); Blood Urine Negative (Negative); Color Urine Yellow (Yellow); Glucose Urine UA Negative (Negative); Ketones Urine Negative (Negative); Leukocyte Esterase Ur Negative LEU/UL (Negative); Mucus Urine Rare /lpf; Nitrate Urine Negative (Negative); Protein Urine Negative (Negative); RBC Urine 0-2 /hpf (0-2); Specific Grav Ur 1.023 (1.001-1.035); WBC Urine 0-3 /hpf
[2021-08-04 02:25] LABS: Troponin I < 0.012 ng/mL (0.000-0.034)
[2021-08-04 02:27] LABS: INR 0.9; Prothrombin Time 12.4 Seconds (11.1-14.7)
[2021-08-04 02:28] LABS: Partial Thromboplastin Time 27.6 SECONDS (22.3-36.8)
[2021-08-04 02:51] LABS: SARS-CoV-2 RNA PCR Negative
--- NOTE | 2021-08-04 02:54 | ED.GENADULT ---
HPI - General Adult General Chief complaint: Shortness of Breath/Dyspnea Stated complaint: WEAKNESS Time Seen by Provider: 08/04/21 01:13 History of Present Illness HPI narrative: Patient 61-year-old female presents the emergency department with chief complaint of shortness of breath patient reports she has history of COPD and is started having visual hallucinations the patient reports she gets like this whenever her carbon dioxide level started going up patient states last time she was like this she required BiPAP patient does report that she sleeps with BiPAP on at night but has not been wanting to wear it because it made her anxious Related Data Home Medications Medication Instructions Recorded Confirmed Combivent Respimat 1 puff INHALATION DAILY 03/16/20 03/16/20 albuterol sulfate [ProAir HFA] 2 puff INHALATION Q6H 03/16/20 03/16/20 budesonide-formoterol 1 puff INHALATION DAILY 03/16/20 03/16/20 fluticasone propion-salmeterol 1 inh INHALATION DAILY 03/16/20 03/16/20 [Wixela Inhub] furosemide 20 mg PO DAILY 03/16/20 03/16/20 potassium chloride 10 meq PO DAILY 03/16/20 03/16/20 Allergies Allergy/AdvReac Type Severity Reaction Status Date / Time No Known Allergies Allergy Verified 08/04/21 01:04 Review of Systems Review of Systems: A 10 system review of systems was completed on the patient and is negative except for what is stated in the HPI. Nursing and ancillary documentation was reviewed. PMFSH Past Medical History Medical History (Updated 08/04/21 @ 02:57 by Endy Mendoza MD) Chronic respiratory failure with hypoxia, on home O2 therapy COPD (chronic obstructive pulmonary disease) DVT (deep venous thrombosis) Latent tuberculosis Surgical History Surgical History Hx of cholecystectomy Family History Family History Mother Diabetes mellitus, Onset Age: 75 Cerebrovascular accident, Onset Age: 75 Father , of pneumonia Diabetes mellitus, Onset Age: 79 Sibling Dementia Cerebrovascular accident Diabetes mellitus Social History Social History Social History: The patient is a former smoker. She smoked up to 2 packs of cigarettes per day for 42 years. She quit smoking in July 2017. She was never much of a drinker. She has not drink any alcohol in several years. She denies illicit substance use. Primary care physician: Dr. Damien Keyes Code status: full code Smoking status: Former smoker Smoking end date: 07/07/17 Alcohol intake: never Substance use: never Additional living arrangements comments: she lives at home with her . Her daughter and 2 grandchildren lives with them and helps them out as her requires significant care. she also has another daughter with 4 other Grandchildren that live close by. 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 HEAD: Normocephalic, atraumatic. EYES: PERRLA and EOMI. ENT: Nares clear, no rhinorrhea or epistaxis. Mucous membranes moist. NECK: Supple. CHEST: Clear to auscultation. No respiratory distress. HEART: Regular rate and rhythm. No murmur heard. Normal peripheral pulses. ABDOMEN: Soft, nontender, nondistended, normal active bowel sounds. EXTREMITIES: Normal range of motion. No edema. SKIN: Warm, dry, no rash. NEURO: No focal deficits. Alert and oriented x3. PSYCH: Normal mood and affect. Course Vital Signs Vital signs: Vital Signs Temperature 37.0 C 08/03/21 19:02 Pulse Rate 91 08/03/21 19:02 Respiratory Rate 08/03/21 19:02 Blood Pressure 142/71 H 08/03/21 19:02 Pulse Ox
[2021-08-04] MEDS: ALBUTEROL SULFATE NEB 2.5 MG/0.5 ML INH 5 MG INHALATION ×4 (03:20→20:46)
[2021-08-04] MEDS: IPRATROPIUM BR 0.02% INH SOLN 0.5 MG/2.5 ML VIAL INHALATION ×4 (03:20→20:47)
[2021-08-04] MEDS: methylPREDNISolone SOD SUCC 125 MG VIAL 60 MG IV PUSH ×3 (06:14→22:00)
[2021-08-04 06:38] LABS: Alveolar/Arterial O2 Gradient 106.9 mmHg; Base Excess ABG 18.3 mEq/l (+/-2.0); Carboxyhemoglobin 0.2 % THb (0-2.0); Fractional Inspired Oxygen 40 %; HCO3 ABG 48.5 mEq/l (22.0-26.0); Methemoglobin ABG 0.2 %THb (0-1.5); Oxygen Content ABG 14.6 %vol (16.0-22.0); Oxygen Saturation ABG 90.5 % (95.0-100.0); Oxyhemoglobin 91.4 % THb (90.0-100.0); PO2 ABG 67.7 mmHg (80.0-100.0); PO2 FiO2 Ratio Arterial Blood 1.69 %; Reduced Hemoglobin 8.2 %THb (0-5.0); Total Hemoglobin 11.3 g/dL (12.0-18.0)
[2021-08-04 06:45] LABS: Device BIPAP; Expiratory Pressure 6 cmH2O; Inspiratory Pressure 12 cmH2O; Modified Allen's Test Unable to perform; PCO2 ABG 96.2 mmHg (35.0-45.0); Site Drawn RIGHT RADIAL
--- NOTE | 2021-08-04 06:56 | PM.IMHP ---
H&P: HPI History of Present Illness Date/Time: 08/04/21 06:20 Chief Complaint: Shortness of breath and hallucinations Narrative: 61-year-old female with past medical history of hypertension and end-stage COPD on chronic home O2 presented to the ER with shortness of breath and hallucinations. The patient reported that she has been seeing a lot of children running around the house that are not really there. The patient reported this to the ER staff and was unable to report this at the time of my evaluation as she was somnolent and difficult to arouse. She rib does have a history of seeing to individuals that are not there at any time her CO2 becomes elevated. She was admitted and March 2020 and at that time had a pCO2 of 81. She was treated with BiPAP, steroids and nebulizer treatments at that time. She is supposed to use a BiPAP at home but is history of noncompliance with BiPAP therapy. She arrived to the ER on her home O2 of 4 L satting 100%. She received 125 mg of IV Solu-Medrol in route to the ER. She has chronic 4+ pitting edema bilateral lower extremities is unchanged from baseline. She was unable to tell me about any of her symptoms due to her lethargy. Initially at the time my evaluation the patient was unable to tell me our location the month or the year. After having a BiPAP adjustments and after multiple attempts to communicate with the patient she was able to eventually tell me that she was in [place] but could not name the hospital and could tell me the year but not the month. She has chronic lower extremity edema consistent with lymphedema. She had echocardiogram during her last hospitalization that demonstrated indeterminate diastolic function due to tachycardia with no evidence of pulmonary hypertension and normal ejection fraction. According to immunization records it does not appear that the patient has been vaccinated against COVID-19. Review of Systems Review of Systems: Limited due to patient's encephalopathy due to hypercarbia. [facility] Past Medical History Medical History Chronic respiratory failure with hypoxia, on home O2 therapy COPD (chronic obstructive pulmonary disease) DVT (deep venous thrombosis) Latent tuberculosis Surgical History Surgical History Hx of cholecystectomy Family History Family History Mother Diabetes mellitus, Onset Age: 75 Cerebrovascular accident, Onset Age: 75 Father , of pneumonia Diabetes mellitus, Onset Age: 79 Sibling Dementia Cerebrovascular accident Diabetes mellitus Social History Social History (Updated 08/04/21 @ 08:19 by Stacey Starr DO) Social History: The patient is a former smoker. She smoked up to 2 packs of cigarettes per day for 42 years. She quit smoking in July 2017. She was never much of a drinker. She has not drink any alcohol in several years. She denies illicit substance use. Primary care physician: Dr. Damien Keyes Code status: Full code Smoking status: Former smoker Smoking end date: 07/07/17 Alcohol intake: never Substance use: never Additional living arrangements comments: she lives at home with her . Her daughter and 2 grandchildren lives with them and helps them out as her requires significant care. she also has another daughter with 4 other Grandchildren that live close by. 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
[2021-08-04] MEDS: ENOXAPARIN 40 MG/0.4 ML SYRINGE SUB-Q (09:46)
--- NOTE | 2021-08-04 09:56 | PM.IMPN ---
Progress Note: A&P Assessment and Plan (1) Acute on chronic respiratory failure with hypoxia and hypercapnia: Code(s): J96.21 - Acute and chronic respiratory failure with hypoxia; J96.22 - Acute and chronic respiratory failure with hypercapnia Status: Acute Assessment and Plan: Oxygen and BiPAP Steroids and bronchodilators Follow-up ABGs (2) COPD exacerbation: Code(s): J44.1 - Chronic obstructive pulmonary disease with (acute) exacerbation Status: Acute Assessment and Plan: Steroids bronchodilators (3) Bilateral lower extremity edema: Code(s): R60.0 - Localized edema Status: Acute Assessment and Plan: Appears to have chronic lymphedema with venous stasis dermatitis as well (4) Hyponatremia: Code(s): E87.1 - Hypo-osmolality and hyponatremia Status: Acute Assessment and Plan: This appears to be chronic as baseline sodium was 131 Possibly due to chronic diuretic use with by depletion versus possible mild SIADH due to pulmonary disease Fractional excretion of urea Subjective Date/time seen: 08/04/21 09:56 Interval history: 08/04 visit. Breathing better with BiPAP. Hungry and thirsty. Denied pain. Denied GI or issues. Review of Systems Review of Systems: All systems reviewed & are unremarkable except as noted in HPI and below Exam Narrative: HEENT: PERRL, sclerae nonicteric, pharyngeal mucosa pink and intact NECK: No JVD CHEST: Diminished but coarse breath sounds. Mildly tachypneic. HEART: NL S1/S2, regular, no murmur ABDOMEN: BS+, soft, nontender, no mass, no bruits EXTREMITIES: Distal lower extremities with erythema and 3-4+ nonpitting edema with minimal pitting NEUROLOGIC: CN intact and symmetric to inspection. MUSCULOSKELETAL: Tone and strength symmetric. PSYCH: Alert. Oriented to person, place, and time. Objective Data Vital Signs Vital Signs: Vital Signs - 24 hr 08/03/21 19:02 08/04/21 01:01 08/04/21 01:02 Temperature 98.6 F Pulse Rate 91 81 95 Respiratory Rate 19 19 18 Blood Pressure 142/71 H 131/64 Pulse Oximetry 99 100 99 08/04/21 01:03 08/04/21 01:07 08/04/21 01:15 Temperature Pulse Rate 77 92 78 Respiratory Rate 21 H 18 Blood Pressure 131/64 Pulse Oximetry 99 08/04/21 01:16 08/04/21 01:30 08/04/21 01:31 Temperature Pulse Rate 95 101 H 99 Respiratory Rate 21 H 17 19 Blood Pressure 117/63 135/61 Pulse Oximetry 08/04/21 01:45 08/04/21 02:00 08/04/21 02:15 Temperature Pulse Rate 108 H 97 99 Respiratory Rate 26 H 19 15 Blood Pressure 135/61 Pulse Oximetry 96 100 08/04/21 02:30 08/04/21 02:45 08/04/21 02:49 Temperature Pulse Rate 78 71 73 Respiratory Rate 20 15 20 Blood Pressure Pulse Oximetry 100 100 08/04/21 03:00 08/04/21 03:15 08/04/21 03:21 Temperature Pulse Rate 73 73 69 Respiratory Rate 15 15 15 Blood Pressure Pulse Oximetry 99 99 08/04/21 03:25 08/04/21 03:26 08/04/21 03:30 Temperature Pulse Rate 70 69 70 Respiratory Rate 17 17 15 Blood Pressure 112/53 L 112/53 L Pulse Oximetry 100 100 100 08/04/21 03:31 08/04/21 03:48 08/04/21 04:01 Temperature Pulse Rate 69 74 73 Respiratory Rate 14 15 16 Blood Pressure 101/52 L 103/55 L Pulse Oximetry 100 98 100 08/04/21 04:04 08/04/21 04:15 08/04/21 04:31 Temperature Pulse Rate 90 75 70 Respiratory Rate 16 16 16 Blood Pressure 104/52 L Pulse Oximetry 100 96 08/04/21 04:32 08/04/21 04:45 08/04/21 04:46 Temperature Pulse Rate 71 85 67 Respiratory Rate 18 18 13 Blood Pressure 103/59 L Pulse Oximetry 08/04/21 05:00 08/04/21 05:01 08/04/21 05:15 Temperature Pulse Rate 70 70 73 Respiratory Rate 15 14 17 Blood Pressure 105/52 L Pulse Oximetry 08/04/21 05:16 08/04/21 05:26 08/04/21 05:30 Temperature Pulse Rate 63 64 66 Respiratory Rate 16 15 16 Blood Pressure 138/58 L 138/58 L Pulse Oximetry 98 08/04/21 05:45
--- NOTE | 2021-08-04 11:20 | PC.NURSE ---
Sitting up on stretcher. Wants to eat, pt is NPO.
[2021-08-04 12:07] LABS: Alveolar/Arterial O2 Gradient 114.2 mmHg; Base Excess ABG 17.7 mEq/l (+/-2.0); Fractional Inspired Oxygen 40 %; HCO3 ABG 47.5 mEq/l (22.0-26.0); Oxygen Content ABG 15.2 %vol (16.0-22.0); Oxyhemoglobin 91.5 % THb (90.0-100.0); PO2 ABG 67.5 mmHg (80.0-100.0); PO2 FiO2 Ratio Arterial Blood 1.69 %; Total Hemoglobin 11.8 g/dL (12.0-18.0)
[2021-08-04 12:08] LABS: Device BIPAP; Expiratory Pressure 6 cmH2O; Inspiratory Pressure 18 cmH2O; Modified Allen's Test Pass; Site Drawn LEFT RADIAL
--- NOTE | 2021-08-04 16:00 | ADMGEN ---
This patient, Ban Smith, was admitted to IMU Room 204-01. Patient/family oriented to hospital policies and general routines including ID bracelet, bed and alarms, visiting hours, pain management, procedures, bathroom and other care routines, personal items, smoking policy, room service/diet, and visiting hours. Information on how to activate the Rapid Response Team has been discussed. Patient/Family are encouraged to report perceived risks to care and to ask questions if they do not understand what they are told or what they should do.
[2021-08-04 17:58] LABS: Alveolar/Arterial O2 Gradient 78.1 mmHg; Base Excess ABG 14.6 mEq/l (+/-2.0); Fractional Inspired Oxygen 40 %; HCO3 ABG 43.6 mEq/l (22.0-26.0); Oxygen Saturation ABG 97.6 % (95.0-100.0); Oxyhemoglobin 96.8 % THb (90.0-100.0); PO2 ABG 112.8 mmHg (80.0-100.0); PO2 FiO2 Ratio Arterial Blood 2.82 %; Total Hemoglobin 11.6 g/dL (12.0-18.0); pH ABG 7.344 (7.350-7.450)
[2021-08-04 18:00] LABS: Device NON-INVASIVE VENT; Modified Allen's Test Pass; Non-Invasive Expiratory Pressure 6 CMH2O; Non-Invasive Inspiratory Pressure 18 CMH2O; Non-Invasive Vent Rate 24 /MIN; Site Drawn LEFT RADIAL
[2021-08-04] MEDS: FLUTICASONE/SALMETEROL 115-21 MCG INHALER 1 PUFF 2 PUFF INHALATION (20:46)
[2021-08-04] MEDS: LORazepam INJ (*CRX) 2 MG/ML VIAL 0.5 MG IV PUSH (23:43)
[2021-08-05] VITALS (26 sets, daily range): BP systolic 109–160; BP diastolic 63–94; PULSE 66–129; RESP 16–25; TEMP 36.3–38; O2SAT 95–100
[2021-08-05] MEDS: IPRATROPIUM BR 0.02% INH SOLN 0.5 MG/2.5 ML VIAL INHALATION ×4 (02:12→21:09)
[2021-08-05] MEDS: ALBUTEROL SULFATE NEB 2.5 MG/0.5 ML INH 5 MG INHALATION ×4 (02:12→21:08)
[2021-08-05 05:08] LABS: Alveolar/Arterial O2 Gradient 85.9 mmHg; Base Excess ABG 17.8 mEq/l (+/-2.0); Carboxyhemoglobin 0.3 % THb (0-2.0); Fractional Inspired Oxygen 40 %; HCO3 ABG 46.1 mEq/l (22.0-26.0); Methemoglobin ABG 0.3 %THb (0-1.5); Oxygen Content ABG 15.5 %vol (16.0-22.0); Oxygen Saturation ABG 97.7 % (95.0-100.0); Oxyhemoglobin 96.8 % THb (90.0-100.0); PO2 ABG 109.8 mmHg (80.0-100.0); PO2 FiO2 Ratio Arterial Blood 2.75 %; Reduced Hemoglobin 2.6 %THb (0-5.0); Total Hemoglobin 11.3 g/dL (12.0-18.0); pH ABG 7.391 (7.350-7.450)
[2021-08-05 05:10] LABS: Device BIPAP; Modified Allen's Test Pass; PCO2 ABG 77.8 mmHg (35.0-45.0); Site Drawn LEFT RADIAL
[2021-08-05 05:11] LABS: Expiratory Pressure 6 cmH2O; Inspiratory Pressure 18 cmH2O
[2021-08-05 05:24] LABS: Hematocrit 31.9 % (37.0-47.0); Hemoglobin 9.8 g/dL (12.0-15.0); Mean Corpuscular HGB Conc 30.7 g/dl (32-36); Mean Corpuscular Volume 94.4 fl (80-100); Mean Platelet Volume 9.8 fl (7.4-10.4); Platelet Count Result 146 k/mm3 (150-375); Red Blood Count 3.38 M/mm3 (4.2-5.4); Red Cell Distribution Width 12.6 % (11.5-14.5); White Blood Count 4.5 K/mm3 (4.5-10.0)
[2021-08-05 05:51] LABS: Blood Urea Nitrogen 25 mg/dL (7-17); Calcium 8.8 mg/dL (8.4-10.2); Carbon Dioxide > 40 mmol/L (22-30); Chloride 86 mmol/L (98-107); Estimated Glomerular Filt Rate > 60; Glucose 135 mg/dL (65-110); Potassium 4.2 mmol/L (3.4-5.0); Sodium 128 mmol/L (137-145)
[2021-08-05] MEDS: methylPREDNISolone SOD SUCC 125 MG VIAL 60 MG IV PUSH ×3 (06:26→21:55)
[2021-08-05] MEDS: FLUTICASONE/SALMETEROL 115-21 MCG INHALER 1 PUFF 2 PUFF INHALATION ×2 (08:10→21:09)
[2021-08-05] MEDS: ENOXAPARIN 40 MG/0.4 ML SYRINGE SUB-Q (10:11)
[2021-08-05] MEDS: POTASSIUM CHLORIDE 10 MEQ TABLET.ER PO (10:11)
[2021-08-05] MEDS: FUROSEMIDE 20 MG TABLET PO (10:11)
[2021-08-05] MEDS: ESCITALOPRAM OXALATE 5 MG TABLET PO (10:11)
--- NOTE | 2021-08-05 10:28 | PM.IMPN ---
Progress Note: A&P Assessment and Plan (1) Acute on chronic respiratory failure with hypoxia and hypercapnia: Code(s): J96.21 - Acute and chronic respiratory failure with hypoxia; J96.22 - Acute and chronic respiratory failure with hypercapnia Status: Acute Assessment and Plan: Oxygen and BiPAP Steroids and bronchodilators Follow-up ABGs improved with pCO2 in 70s on 08/05 (2) COPD exacerbation: Code(s): J44.1 - Chronic obstructive pulmonary disease with (acute) exacerbation Status: Acute Assessment and Plan: Steroids bronchodilators (3) Bilateral lower extremity edema: Code(s): R60.0 - Localized edema Status: Acute Assessment and Plan: Appears to have chronic lymphedema with venous stasis dermatitis as well (4) Hyponatremia: Code(s): E87.1 - Hypo-osmolality and hyponatremia Status: Acute Assessment and Plan: This appears to be chronic as baseline sodium was 131 Possibly due to chronic diuretic use with by depletion versus possible mild SIADH due to pulmonary disease Fractional excretion of urea ordered 08/04 remains uncollected 08/05 Subjective Date/time seen: 08/05/21 10:28 Interval history: August 05 visit. Breathing better. Transition to nasal cannula this morning. Tolerating well. Tolerating diet. Denied pain. Short of breath with any exertion. Admits to noncompliance with her home BiPAP. Review of Systems Review of Systems: All systems reviewed & are unremarkable except as noted in HPI and below Exam Narrative: HEENT: PERRL, sclerae nonicteric, pharyngeal mucosa pink and intact NECK: No JVD CHEST: Diminished but coarse breath sounds. Mildly tachypneic. HEART: NL S1/S2, regular, no murmur ABDOMEN: BS+, soft, nontender, no mass, no bruits EXTREMITIES: Distal lower extremities with erythema and 3-4+ nonpitting edema with minimal pitting NEUROLOGIC: CN intact and symmetric to inspection. MUSCULOSKELETAL: Tone and strength symmetric. PSYCH: Alert. Oriented to person, place, and time. Objective Data Vital Signs Vital Signs: Vital Signs - 24 hr 08/04/21 10:30 08/04/21 10:31 08/04/21 10:45 Temperature Pulse Rate 76 76 89 Respiratory Rate 24 H 14 23 H Blood Pressure 120/73 Pulse Oximetry 99 08/04/21 10:47 08/04/21 11:00 08/04/21 11:15 Temperature Pulse Rate 89 76 70 Respiratory Rate 15 21 H 21 H Blood Pressure 116/84 Pulse Oximetry 08/04/21 11:16 08/04/21 11:20 08/04/21 11:21 Temperature Pulse Rate 86 96 82 Respiratory Rate 18 28 H 19 Blood Pressure 114/65 Pulse Oximetry 08/04/21 11:30 08/04/21 11:31 08/04/21 11:45 Temperature Pulse Rate 77 94 78 Respiratory Rate 20 24 H 19 Blood Pressure 115/86 Pulse Oximetry 08/04/21 11:46 08/04/21 12:00 08/04/21 12:01 Temperature Pulse Rate 82 78 73 Respiratory Rate 20 24 H 23 H Blood Pressure 121/67 Pulse Oximetry 08/04/21 12:15 08/04/21 12:16 08/04/21 12:30 Temperature Pulse Rate 96 90 75 Respiratory Rate 16 21 H 17 Blood Pressure 129/72 Pulse Oximetry 08/04/21 12:31 08/04/21 12:45 08/04/21 12:46 Temperature Pulse Rate 80 100 107 H Respiratory Rate 18 20 28 H Blood Pressure 124/72 127/84 Pulse Oximetry 08/04/21 12:57 08/04/21 12:58 08/04/21 13:00 Temperature Pulse Rate 95 88 77 Respiratory Rate 23 H 25 H 20 Blood Pressure 126/113 H Pulse Oximetry 100 08/04/21 13:01 08/04/21 13:15 08/04/21 13:16 Temperature Pulse Rate 75 77 76 Respiratory Rate 22 H 17 20 Blood Pressure 130/68 Pulse Oximetry 08/04/21 13:30 08/04/21 13:31 08/04/21 13:45 Temperature Pulse Rate 82 70 102 H Respiratory Rate 19 16 20 Blood Pressure 128/65 Pulse Oximetry 08/04/21 14:00 08/04/21 14:01 08/04/21 14:15 Temperature Pulse Rate 109 H 100 108 H Respiratory Rate 17 21 H 21 H Blood Pressure 107/80 Pulse Oximetry 96 97 97 08/04/21 14:17 08/04/21 14:30
[2021-08-05] MEDS: METOPROLOL SUCCINATE EXT REL 50 MG TABCR PO (12:08)
[2021-08-05 18:23] LABS: Glucose Point of Care 173 mg/dl (65-105)
[2021-08-06] VITALS (19 sets, daily range): BP systolic 110–161; BP diastolic 60–73; PULSE 91–107; RESP 18–25; TEMP 36.7–36.9; O2SAT 95–100
[2021-08-06] MEDS: ALBUTEROL SULFATE NEB 2.5 MG/0.5 ML INH 5 MG INHALATION ×2 (03:02→09:07)
[2021-08-06] MEDS: IPRATROPIUM BR 0.02% INH SOLN 0.5 MG/2.5 ML VIAL INHALATION ×4 (03:02→21:20)
[2021-08-06 05:19] LABS: Hematocrit 34.3 % (37.0-47.0); Hemoglobin 10.7 g/dL (12.0-15.0); Mean Corpuscular HGB Conc 31.2 g/dl (32-36); Mean Corpuscular Hemoglobin 28.2 pg (26-34); Mean Corpuscular Volume 90.3 fl (80-100); Mean Platelet Volume 9.5 fl (7.4-10.4); Platelet Count Result 161 k/mm3 (150-375); Red Cell Distribution Width 12.7 % (11.5-14.5); White Blood Count 4.5 K/mm3 (4.5-10.0)
[2021-08-06] MEDS: methylPREDNISolone SOD SUCC 125 MG VIAL 60 MG IV PUSH (05:24)
[2021-08-06 05:41] LABS: Blood Urea Nitrogen 25 mg/dL (7-17); Calcium 8.9 mg/dL (8.4-10.2); Carbon Dioxide > 40 mmol/L (22-30); Chloride 86 mmol/L (98-107); Estimated Glomerular Filt Rate > 60; Glucose 168 mg/dL (65-110); Potassium 3.9 mmol/L (3.4-5.0); Sodium 131 mmol/L (137-145)
[2021-08-06 06:13] LABS: Thyroid Stimulating Hormone Reflex 0.233 uIU/mL (0.465-4.68)
[2021-08-06 07:20] LABS: Free T4 Free Thyroxine Reflex 1.34 ng/dL (0.78-2.19)
[2021-08-06 08:25] LABS: Total Triiodothyronine (T3) 0.77 NG/ML (0.97-1.69)
[2021-08-06] MEDS: FLUTICASONE/SALMETEROL 115-21 MCG INHALER 1 PUFF 2 PUFF INHALATION ×2 (09:07→21:20)
[2021-08-06] MEDS: ESCITALOPRAM OXALATE 5 MG TABLET PO (09:11)
[2021-08-06] MEDS: METOPROLOL SUCCINATE EXT REL 50 MG TABCR PO (09:12)
[2021-08-06] MEDS: FUROSEMIDE 20 MG TABLET PO (09:12)
[2021-08-06] MEDS: POTASSIUM CHLORIDE 10 MEQ TABLET.ER PO (09:12)
[2021-08-06] MEDS: ENOXAPARIN 40 MG/0.4 ML SYRINGE SUB-Q (09:12)
--- NOTE | 2021-08-06 11:43 | PM.IMPN ---
Progress Note: A&P Assessment and Plan (1) Acute on chronic respiratory failure with hypoxia and hypercapnia: Code(s): J96.21 - Acute and chronic respiratory failure with hypoxia; J96.22 - Acute and chronic respiratory failure with hypercapnia Status: Acute Assessment and Plan: ABG on admission was 7.32/99/105 on 3.5 L. She was treated appropriately. ABG yesterday showing 7.39/78/110 on BiPAP Most likely she is noncompliant with her treatment at home contributing to her severe hypercapnia Serum bicarb greater than 40. Will give Diamox. Hold Lasix Continue steroids and nebulizer treatments. Continue to encourage BiPAP use. (2) COPD exacerbation: Code(s): J44.1 - Chronic obstructive pulmonary disease with (acute) exacerbation Status: Acute Assessment and Plan: No wheezing currently. She remains on Solu-Medrol and nebulizer treatments. Her tachycardia is suspected to be related to the albuterol. Transition to oral steroids. (3) Hallucination: Code(s): R44.3 - Hallucinations, unspecified Status: Acute Assessment and Plan: Patient with visual hallucinations. Probably related to her hypercapnia. TSH noted but this is probably related to the steroids. Her free T4 is normal. Will plan to repeat thyroid studies as an outpatient. Will check B12 folate levels. Wean steroids since steroid psychosis could be contributing to this. No focal weakness but will check CT of the brain. Will continue monitor for now. (4) Bilateral lower extremity edema: Code(s): R60.0 - Localized edema Status: Acute Assessment and Plan: Appears to have chronic lymphedema with venous stasis dermatitis as well Will have PT and OT evaluate and treat. Will have her evaluated for lymphedema clinic (5) Hyponatremia: Code(s): E87.1 - Hypo-osmolality and hyponatremia Status: Acute Assessment and Plan: This appears to be chronic as baseline sodium was 131 Possibly due to chronic diuretic use with depletion vs possible mild SIADH due to pulmonary disease or being on lexapro Fractional excretion of urea ordered 08/04 remains uncollected 08/06 Repeat sodium today is at 131 and baseline (6) DVT prophylaxis: Code(s): Z29.9 - Encounter for prophylactic measures, unspecified Status: Acute Assessment and Plan: Lovenox Subjective Date/time seen: 08/06/21 11:43 Interval history: 61yo female with COPD and chronic respiratory failure here for SOB. Assuming care. Chart reviewed. She is having visual hallucinations seeing children running in her room No auditory symptoms. No suicidal or homicidal ideation. She is oriented. She denies chest pain. No shortness of breath. Slight cough that she states is chronic. She slept poorly last night. No nausea, vomiting or diarrhea. She did with the BiPAP last night but is not compliant with this at home. She states that she wears 4 L of oxygen at home. Exam Narrative: Tm 100.4 98.5 159/72 107 22 95% 4L Gen - NARD lying semi-recumbent in bed Chest -few bibasilar rhonchi. No wheezing. CV -tachycardic but regular. Telemetry showing intermittent sinus tachycardia. Abd - Soft, NT/ND, Positive BS Ext -bilateral lymphedema the lower extremities. 2+ DP pulses. Neuro - Alert and oriented x4. No focal weakness Psych -0 mood but off affect. Skin - Warm and dry. wrinkling noted to the skin bilateral lower extremities. Objective Data Vital Signs Vital Signs: Vital Signs - 24 hr 08/05/21 12:00 08/05/21 12:08 08/05/21 13:36 Temperature 99.7 F H Pulse Rate 113 H 118 H 108 H Respiratory Rate 16 20 Blood Pressure 145/66 H Pulse Oximetry 96 08/05/21 13:44 08/05/21 14:00 08/05/21 16:00 Temperature 100.4 F H Pulse Rate 102 H 116 H 111 H Respiratory Rate 20 20 Blood Pressure 109/63 Pulse Oximetry 96 08/05/21 20:00 08/05/21 20:25 08/05/21 21:09 Temperat
[2021-08-06] MEDS: acetaZOLAMIDE SODIUM FOR INJ 500 MG VIAL 250 MG IV PUSH (16:10)
[2021-08-07] VITALS (15 sets, daily range): BP systolic 112–118; BP diastolic 59–63; PULSE 61–102; RESP 16–25; TEMP 36–36.8; O2SAT 94–99; BMI 23.6
--- NOTE | 2021-08-07 01:50 | PC.NURSE ---
This patient, Ban Smith, was transferred to [ 247] on 08/07/21 at 0151. Personal belongings sent with patient. Report given to [Elizabeth simms ]. Appropriate documentation sent with patient.
--- NOTE | 2021-08-07 02:06 | PC.NURSE ---
RECIEVED PT FROM IMU PER BED. VOICES NO C/O
[2021-08-07] MEDS: IPRATROPIUM BR 0.02% INH SOLN 0.5 MG/2.5 ML VIAL INHALATION ×4 (02:55→22:21)
[2021-08-07] MEDS: ACETAMINOPHEN 325 MG TABLET 650 MG PO (03:19)
[2021-08-07 05:49] LABS: Blood Urea Nitrogen 21 mg/dL (7-17); Calcium 8.6 mg/dL (8.4-10.2); Carbon Dioxide > 40 mmol/L (22-30); Chloride 90 mmol/L (98-107); Estimated Glomerular Filt Rate > 60; Glucose 104 mg/dL (65-110); Potassium 3.4 mmol/L (3.4-5.0); Sodium 130 mmol/L (137-145)
[2021-08-07 06:52] LABS: Folic Acid 4.2 ng/mL (2.76->20)
[2021-08-07] MEDS: FLUTICASONE/SALMETEROL 115-21 MCG INHALER 1 PUFF 2 PUFF INHALATION ×2 (08:25→22:21)
[2021-08-07] MEDS: ENOXAPARIN 40 MG/0.4 ML SYRINGE SUB-Q (08:42)
[2021-08-07] MEDS: POTASSIUM CHLORIDE 10 MEQ TABLET.ER PO (08:42)
[2021-08-07] MEDS: METOPROLOL SUCCINATE EXT REL 50 MG TABCR PO (08:42)
[2021-08-07] MEDS: acetaZOLAMIDE SODIUM FOR INJ 500 MG VIAL 250 MG IV PUSH (08:42)
[2021-08-07] MEDS: predniSONE 20 MG TABLET 40 MG PO (08:42)
[2021-08-07] MEDS: ESCITALOPRAM OXALATE 5 MG TABLET PO (08:42)
--- NOTE | 2021-08-07 15:10 | PM.IMPN ---
Progress Note: A&P Assessment and Plan (1) Acute on chronic respiratory failure with hypoxia and hypercapnia: Code(s): J96.21 - Acute and chronic respiratory failure with hypoxia; J96.22 - Acute and chronic respiratory failure with hypercapnia Status: Acute Assessment and Plan: ABG on admission was 7.32/99/105 on 3.5 L felt related to COPD exacerbation and noncompliance with her BiPAP. She was treated appropriately with nebs and steroids. ABG 08/05 showing 7.39/78/110 on BiPAP Serum bicarb greater than 40 so she was given Diamox and Lasix held Continue steroids and nebulizer treatments. she is compliant with BiPAP use here. (2) COPD exacerbation: Code(s): J44.1 - Chronic obstructive pulmonary disease with (acute) exacerbation Status: Acute Assessment and Plan: No wheezing currently. She was on Solu-Medrol and nebulizer treatments. Her tachycardia is suspected to be related to the albuterol. She has been transitioned to oral steroids. (3) Hallucination: Code(s): R44.3 - Hallucinations, unspecified Status: Acute Assessment and Plan: Patient with visual hallucinations. Probably related to her hypercapnia. TSH noted but this is probably related to the steroids. Her free T4 is normal. Will plan to repeat thyroid studies as an outpatient. B12 folate levels okay. Weaned steroids to oral. CT of the brain showing only chronic findings. Consider Lewy Body or other forms of dementia. Will continue monitor for now. (4) Bilateral lower extremity edema: Code(s): R60.0 - Localized edema Status: Acute Assessment and Plan: Appears to have chronic lymphedema with venous stasis dermatitis as well Continue PT and OT. Will have her evaluated for lymphedema clinic (5) Hyponatremia: Code(s): E87.1 - Hypo-osmolality and hyponatremia Status: Acute Assessment and Plan: This appears to be chronic as baseline sodium was 131 Possibly due to chronic diuretic use with depletion vs possible mild SIADH due to pulmonary disease or being on lexapro Related to the low TSH? Fractional excretion of urea ordered 08/04 remains uncollected Repeat sodium today is at 130 and baseline; will follow (6) DVT prophylaxis: Code(s): Z29.9 - Encounter for prophylactic measures, unspecified Status: Acute Assessment and Plan: Lovenox Subjective Date/time seen: 08/07/21 15:10 Interval history: 61yo female with COPD and chronic respiratory failure here for SOB. Slept well last night. No problems overnight. She did wear the BiPAP last night. No CP. No n/v. Does complain of headache. Exam Narrative: AF 97.8 118/63 102 24 98% 4L Gen - NARD Chest - distant BS, nml RR CV - RRR S1/S2 Abd - Soft, NT/ND, Positive BS Ext -bilateral lymphedema the lower extremities Neuro - Alert and oriented x4. No focal weakness Psych - odd affect. Skin - Warm and dry. wrinkling noted to the skin bilateral lower extremities. Objective Data Vital Signs Vital Signs: Vital Signs - 24 hr 08/06/21 16:08 08/06/21 20:00 08/06/21 21:28 Temperature 98.0 F 98.0 F Pulse Rate 91 99 97 Respiratory Rate 20 18 18 Blood Pressure 161/73 H 110/60 Pulse Oximetry 97 97 08/06/21 21:29 08/06/21 21:30 08/06/21 21:34 Temperature Pulse Rate 97 99 Respiratory Rate 24 H 24 H Blood Pressure Pulse Oximetry 97 97 08/06/21 23:14 08/07/21 03:06 08/07/21 03:07 Temperature 98.0 F Pulse Rate 99 98 99 Respiratory Rate 18 25 H 25 H Blood Pressure 110/60 Pulse Oximetry 97 96 08/07/21 03:11 08/07/21 06:40 08/07/21 08:25 Temperature 98.3 F Pulse Rate 102 H 61 101 H Respiratory Rate 24 H 18 24 H Blood Pressure 118/62 Pulse Oximetry 94 08/07/21 08:42 08/07/21 12:50 08/07/21 14:09 Temperature Pulse Rate 80 100 Respiratory Rate 24 H Blood Pressure Pulse Oximetry 95 08/07/21 14:10 08/07/21 1
--- NOTE | 2021-08-07 15:56 | PC.NURSE ---
On 08/07/21, the student Nayana Valentin, provided care and completed [facility] documentation on this patient. I have reviewed the students documentation on this patient. I have reviewed the students documentation and agree with the findings.
[2021-08-07] MEDS: POTASSIUM CHLORIDE 20 MEQ TABLET 40 MEQ PO (16:11)
[2021-08-07 19:31] LABS: Creatinine Urine 57.6 mg/dL; Urea Random Urine 762 MG/DL
[2021-08-08] VITALS (16 sets, daily range): BP systolic 100–123; BP diastolic 52–77; PULSE 69–90; RESP 17–24; TEMP 36–36.9; O2SAT 96–100
[2021-08-08] MEDS: IPRATROPIUM BR 0.02% INH SOLN 0.5 MG/2.5 ML VIAL INHALATION ×4 (03:13→19:59)
[2021-08-08] MEDS: ACETAMINOPHEN 325 MG TABLET 650 MG PO (04:51)
[2021-08-08 05:53] LABS: Anion Gap -1 mmol/L (8-16); Blood Urea Nitrogen 20 mg/dL (7-17); Calcium 8.7 mg/dL (8.4-10.2); Carbon Dioxide 36 mmol/L (22-30); Chloride 96 mmol/L (98-107); Estimated CRCL calculation 79 ml/min; Estimated Glomerular Filt Rate > 60; Glucose 115 mg/dL (65-110); Potassium 3.8 mmol/L (3.4-5.0); Sodium 131 mmol/L (137-145)
[2021-08-08] MEDS: FLUTICASONE/SALMETEROL 115-21 MCG INHALER 1 PUFF 2 PUFF INHALATION ×2 (08:49→19:59)
[2021-08-08] MEDS: METOPROLOL SUCCINATE EXT REL 50 MG TABCR PO (09:00)
[2021-08-08] MEDS: predniSONE 20 MG TABLET 40 MG PO (09:00)
[2021-08-08] MEDS: ENOXAPARIN 40 MG/0.4 ML SYRINGE SUB-Q (09:01)
[2021-08-08] MEDS: POTASSIUM CHLORIDE 10 MEQ TABLET.ER PO (09:01)
[2021-08-08] MEDS: ESCITALOPRAM OXALATE 5 MG TABLET PO (09:01)
--- NOTE | 2021-08-08 10:33 | PM.IMPN ---
Progress Note: A&P Assessment and Plan (1) Acute on chronic respiratory failure with hypoxia and hypercapnia: Code(s): J96.21 - Acute and chronic respiratory failure with hypoxia; J96.22 - Acute and chronic respiratory failure with hypercapnia Status: Acute Assessment and Plan: ABG on admission was 7.32/99/105 on 3.5 L felt related to COPD exacerbation and noncompliance with her BiPAP. She was treated appropriately with nebs and steroids and started back on BiPAP. Repeat ABG 08/05 showing 7.39/78/110 on BiPAP. Serum bicarb was greater than 40 so she was given Diamox with improvement. She was weaned to Prednisone. She remains stable on her 4L. Continue steroids and nebulizer treatments. Continue to encourage compliance with BiPAP use. Discussed with daughter yesterday and she requested [facility] is being arranged. (2) COPD exacerbation: Code(s): J44.1 - Chronic obstructive pulmonary disease with (acute) exacerbation Status: Acute Assessment and Plan: No wheezing currently. She was on Solu-Medrol and nebulizer treatments. Her tachycardia is suspected to be related to the albuterol so she was changed to Xopenex wjith improvement. She has been transitioned to oral steroids. (3) Hallucination: Code(s): R44.3 - Hallucinations, unspecified Status: Acute Assessment and Plan: Patient had visual hallucinations. [place] related to her hypercapnia. TSH noted but this is probably related to the steroids. Her free T4 is normal. Will plan to repeat thyroid studies as an outpatient. B12 folate levels okay. Weaned to oral steroids. CT of the brain showing only chronic findings. Hallucinations appear to have resolved possibly related to improvement in her blood gases. Will continue to monitor for now. (4) Bilateral lower extremity edema: Code(s): R60.0 - Localized edema Status: Acute Assessment and Plan: Appears to have chronic lymphedema with venous stasis dermatitis as well. Continue PT and OT. Will have her evaluated for lymphedema clinic. (5) Hyponatremia: Code(s): E87.1 - Hypo-osmolality and hyponatremia Status: Acute Assessment and Plan: This appears to be chronic as baseline sodium was 131. Possibly due to chronic diuretic use with depletion vs possible mild SIADH due to pulmonary disease or being on Lexapro. [place] unlikely related to thyroid disease. Fractional excretion of urea is very high but related to abnormally high urea felt related to high urea from unclear reasons. Repeat sodium 131 and at baseline; will follow (6) DVT prophylaxis: Code(s): Z29.9 - Encounter for prophylactic measures, unspecified Status: Acute Assessment and Plan: Lovenox Subjective Date/time seen: 08/08/21 10:33 Interval history: 61yo female with COPD and chronic respiratory failure here for SOB. 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 She complains of low back pain which is chronic. No chest pain or shortness of breath. No nausea or vomiting. She denies any hallucinations today. Exam Narrative: AF 96.8 100/52 80 20 98% 4L Gen - NARD Chest - distant BS, nml RR CV - RRR S1/S2 Abd - Soft, NT/ND, Positive BS Ext - Bilateral lower extremity lymphedema noted. Neuro - Alert and appropriate Psych - odd affect. Skin - Warm and dry. wrinkling noted to the skin bilateral lower extremities. Objective Data Vital Signs Vital Signs: Vital Signs - 24 hr 08/07/21 12:50 08/07/21 14:09 08/07/21 14:10 Temperature 97.8 F Pulse Rate 100 86 Respiratory Rate 24 H 16 Blood Pressure 118/63 Pulse Oximetry 95 98 08/07/21 14:18 08/07/21 20:00 08/07/21 20:15 Temperature 96.8 F L Pulse Rate 102 H 64 Respiratory Rate 24 H 18 Blood Pressure 112/59 L Pulse Oximetry 99 99 08/07/21 22:22 08/07/21 22:25 08/07/21 22:30 Temperature Pulse Rate 93 93 93 Respir
[2021-08-08] MEDS: FUROSEMIDE 20 MG TABLET PO (11:31)
[2021-08-09] VITALS (9 sets, daily range): BP systolic 108–112; BP diastolic 54–55; PULSE 78–95; RESP 16–24; TEMP 36.6–36.9; O2SAT 97–100
[2021-08-09] MEDS: IPRATROPIUM BR 0.02% INH SOLN 0.5 MG/2.5 ML VIAL INHALATION ×2 (01:33→14:30)
[2021-08-09] MEDS: FUROSEMIDE 20 MG TABLET PO (08:12)
[2021-08-09] MEDS: METOPROLOL SUCCINATE EXT REL 50 MG TABCR PO (08:12)
[2021-08-09] MEDS: POTASSIUM CHLORIDE 10 MEQ TABLET.ER PO (08:12)
[2021-08-09] MEDS: ESCITALOPRAM OXALATE 5 MG TABLET PO (08:12)
[2021-08-09] MEDS: predniSONE 20 MG TABLET 40 MG PO (08:12)
[2021-08-09] MEDS: ENOXAPARIN 40 MG/0.4 ML SYRINGE SUB-Q (08:12)
[2021-08-09] MEDS: FLUTICASONE/SALMETEROL 115-21 MCG INHALER 1 PUFF 2 PUFF INHALATION (09:05)
[2021-08-09 10:04] LABS: Hemoglobin 10.6 g/dL (12.0-15.0); Immature Platelet Fraction Pct 3.6 % (0.9-11.2); Mean Corpuscular HGB Conc 30.3 g/dl (32-36); Mean Corpuscular Hemoglobin 28.6 pg (26-34); Mean Corpuscular Volume 94.3 fl (80-100); Mean Platelet Volume 9.4 fl (7.4-10.4); Platelet Count Result 152 k/mm3 (150-375); Red Blood Count 3.71 M/mm3 (4.2-5.4); White Blood Count 10.4 K/mm3 (4.5-10.0)
[2021-08-09 10:14] LABS: Anion Gap -2 mmol/L (8-16); Blood Urea Nitrogen 18 mg/dL (7-17); Calcium 8.4 mg/dL (8.4-10.2); Carbon Dioxide 38 mmol/L (22-30); Chloride 94 mmol/L (98-107); Estimated CRCL calculation 79 ml/min; Estimated Glomerular Filt Rate > 60; Glucose 149 mg/dL (65-110); Potassium 3.6 mmol/L (3.4-5.0); Sodium 130 mmol/L (137-145)
--- NOTE | 2021-08-09 12:14 | PM.DS ---
DS: Admitting Diagnosis Discharge Date 08/09/21 Admitting Diagnosis Shortness of breath and hallucinations DS: Discharge Diagnosis Discharge Diagnosis (1) Acute on chronic respiratory failure with hypoxia and hypercapnia: Code(s): J96.21 - Acute and chronic respiratory failure with hypoxia; J96.22 - Acute and chronic respiratory failure with hypercapnia Status: Acute Assessment and Plan: ABG on admission was 7.32/99/105 on 3.5 L felt related to COPD exacerbation and noncompliance with her BiPAP. She was treated appropriately with nebs and steroids and started back on BiPAP. Repeat ABG 08/05 showing 7.39/78/110 on BiPAP. Serum bicarb was greater than 40 so she was given Diamox with improvement. She was weaned to Prednisone. She remained stable on her 4L. We encouraged compliance with BiPAP use. (2) COPD exacerbation: Code(s): J44.1 - Chronic obstructive pulmonary disease with (acute) exacerbation Status: Acute Assessment and Plan: No wheezing currently. She was treated with Solu-Medrol and nebulizer treatments. Her tachycardia is suspected to be related to the albuterol so she was changed to Xopenex with improvement. She has been transitioned to oral steroids. (3) Hallucination: Code(s): R44.3 - Hallucinations, unspecified Status: Acute Assessment and Plan: Patient was having visual hallucinations. [place] related to her hypercapnia. TSH noted but this is probably related to the steroids. Her free T4 is normal. Will plan to repeat thyroid studies as an outpatient. B12 folate levels okay. Weaned to oral steroids. CT of the brain showing only chronic findings. Hallucinations appear to have resolved possibly related to improvement in her blood gases. (4) Bilateral lower extremity edema: Code(s): R60.0 - Localized edema Status: Acute Assessment and Plan: Appears to have chronic lymphedema with venous stasis dermatitis as well. She worked with PT and OT. Will have her evaluated for lymphedema clinic. (5) Hyponatremia: Code(s): E87.1 - Hypo-osmolality and hyponatremia Status: Acute Assessment and Plan: This appears to be chronic as baseline sodium was 131. Possibly due to chronic diuretic use with depletion vs possible mild SIADH due to pulmonary disease or being on Lexapro. [place] unlikely related to thyroid disease. Repeat sodium 130 and at baseline DS: Summary Hospital Course Reason for hospitalization: 61yo female with COPD and chronic respiratory failure here for SOB and hallucination. Hospital Course: Please see above for details of hospital course Status at Discharge Cognitive/behavioral status at discharge: Stable Time Spent with Patient Time attestation: Total time spent providing and/or coordinating discharge services:35 minutes Time spent: Greater than 30 minutes Exam Narrative: AF 98.5 108/55 82 20 99% 4L Gen - NARD Chest - distant BS, nml RR CV - RRR S1/S2 Abd - Soft, NT/ND, Positive BS Ext - Bilateral lower extremity lymphedema noted. Neuro - Alert and appropriate. Denies hallucinations. Psych - odd affect. Skin - Warm and dry DS: Data Data Completed and Pending Labs on day of discharge: Labs from last 24 hours 08/09/21 08/09/21 09:52 09:52 WBC 10.4 H RBC 3.71 L Hgb 10.6 L Hct 35.0 L MCV 94.3 MCH 28.6 MCHC 30.3 L RDW 13.0 Plt Count 152 MPV 9.4 % Immature Plt Fraction 3.6 Sodium 130 L Potassium 3.6 Chloride 94 L Carbon Dioxide 38 H Anion Gap -2 L BUN 18 H Creatinine 0.70 Estim Creat Clear Calc 79 Estimated GFR > 60 Glucose 149 H Calcium 8.4 Discharge Plan Discharge Attending physician on discharge: Endy Matthews Discharging Clinician: Endy Matthews Anticipated Discharge Date/Time: 08/09/21 12:20 Patient Disposition: Hospital Swing Bed Activity: as tolerated Diet: heart healthy D
[2021-08-09] MEDS: ALBUTEROL SULFATE NEB 2.5 MG/0.5 ML INH 5 MG INHALATION (12:33)
[2021-08-09 13:12] LABS: EDCOVIDSCREEN Negative (Negative)
== END 2021-08-09 20:19 | disposition swing bed (61) | DRG 189 ==
LOC: ANHED 08-04 02:58 → ANHIMU 08-04 04:20 → ANH2MED 08-09 12:23 → ANHIMU 08-10 08:50
PROVIDERS: Internal Medicine; Admitting Provider Internal Medicine; Emergency Provider Emergency Medicine; PCP Family Medicine; Visit Provider Internal Medicine
DX: J96.22 Acute and chronic respiratory failure with hypercapnia (principal); J44.1 Chronic obstructive pulmonary disease with (acute) exacerbation; R44.3 Hallucinations, unspecified; E87.1 Hypo-osmolality and hyponatremia; J96.21 Acute and chronic respiratory failure with hypoxia; R60.0 Localized edema; I10 Essential (primary) hypertension; Z91.19 Patient's noncompliance with other medical treatment and regimen; Z99.81 Dependence on supplemental oxygen; Z87.891 Personal history of nicotine dependence; Z20.822 Contact with and (suspected) exposure to COVID-19; Z86.718 Personal history of other venous thrombosis and embolism; Z90.49 Acquired absence of other specified parts of digestive tract; Z22.7 Latent tuberculosis
CPT/HCPCS: 36415; 36600; 51701; 70450; 71045; 71046; 80048; 80053; 81001; 82375; 82570; 82607; 82746; 82805; 82948; 83050; 83605; 83735; 83880; 84439; 84443; 84480; 84484; 84540; 85025; 85027; 85055; 85610; 85730; 87426; 93005; 94002; 94003; 94640; 96374; 97110; 97161; 97165; 97530; 99291; A9270; C9803; J1120; J1650; J2060; J2930; J7512; U0003; U0005

== ENCOUNTER 2021-08-09 21:03 | Inpatient (IN) | payer OTHER, BC, SELFPAY ==
[2021-08-09 21:30] VITALS: O2SAT 97
[2021-08-09 21:38] VITALS: BMI 27.3
[2021-08-09 22:04] VITALS: PULSE 85; RESP 18; O2SAT 97
--- NOTE | 2021-08-09 22:11 | ADMGEN ---
This patient, Ban Smith, was admitted to 2nd Floor Room 204-2. Patient/family oriented to hospital policies and general routines including ID bracelet, bed and alarms, visiting hours, pain management, procedures, bathroom and other care routines, personal items, smoking policy, room service/diet, and visiting hours. Information on how to activate the Rapid Response Team has been discussed. Pt has belongings from [employer], phone, clothing Patient/Family are encouraged to report perceived risks to care and to ask questions if they do not understand what they are told or what they should do.
[2021-08-09 22:18] VITALS: BP 116/62; TEMP 36.9
[2021-08-10] VITALS (10 sets, daily range): BP systolic 110–123; BP diastolic 58–65; PULSE 62–92; RESP 14–20; TEMP 36.2–36.8; O2SAT 92–100
--- NOTE | 2021-08-10 00:10 | PC.NURSE ---
Pt in bed and watching tv. Pt denies c/o shortness of breath and no signs of respiratory distress noted. BiPap placed on pt at this time.
--- NOTE | 2021-08-10 03:05 | PC.NURSE ---
Pt asleep and BiPap remains in place; No signs of shortness of breath noted.
--- NOTE | 2021-08-10 05:05 | PC.NURSE ---
Pt incontinent of a large amount of urine; Pt cleaned, changed and repositioned.
--- NOTE | 2021-08-10 06:33 | PC.NURSE ---
Pt resting in bed and watching TV. No signs of discomfort noted.
[2021-08-10] MEDS: LEVALBUTEROL NEB 1.25 MG/3 ML INHALATION ×2 (08:11→16:24)
--- NOTE | 2021-08-10 08:24 | PM.IMHP ---
H&P: HPI History of Present Illness Date/Time: 08/10/21 08:24 51-year-old female that patient being admitted as a SWING bed for strengthening. Patient has a past medical history of End stage COPD, Patient has home oxygen and a BIPAP at home that she was not using prior to hospital admission. Patient was found Hypercapnic and not arousable in which she has had few admission for this same thing in the past. Patient was admitted treat with IV Solumedrol and oxygen with BiPAP with sleeping. Patient has a chronic history 4+ pitting edema bilaterally with lymphedema. Patient echo showed she has Diastolic indeterminate function due to tachycardia and pulmonary hypertension with a normal Ejection fracture. Patient is being admitted here for strengthening since she is not ready to return as of yet she will participate with physically therapy until she is able to go home. Chief Complaint: Weakness, COPD Exacerbation, Hypercapnic Review of Systems Review of Systems: dyspea requires oxygen and or bipap extremities 2+pitting edeam All systems reviewed & are unremarkable except as noted in HPI and below PMFSH Past Medical History Medical History (Updated 08/11/21 @ 09:50 by Lyndon Rivera NP) Chronic respiratory failure with hypoxia, on home O2 therapy COPD (chronic obstructive pulmonary disease) DVT (deep venous thrombosis) Latent tuberculosis Surgical History Surgical History Hx of cholecystectomy Family History Family History Mother Diabetes mellitus, Onset Age: 75 Cerebrovascular accident, Onset Age: 75 Father , of pneumonia Diabetes mellitus, Onset Age: 79 Sibling Dementia Cerebrovascular accident Diabetes mellitus Social History Social History Social History: The patient is a former smoker. She smoked up to 2 packs of cigarettes per day for 42 years. She quit smoking in July 2017. She was never much of a drinker. She has not drink any alcohol in several years. She denies illicit substance use. Primary care physician: Dr. Damien Keyes Code status: Full code Smoking status: Former smoker Tobacco type: cigarettes Second hand tobacco smoke exposure: Yes Alcohol intake: never Substance use: never Substance use type: does not use Additional living arrangements comments: she lives at home with her . Her daughter and 2 grandchildren lives with them and helps them out as her requires significant care. she also has another daughter with 4 other Grandchildren that live close by. 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 Please see nursing chart for further information. There is no relevant family history pertinent to the presenting complaint. Meds Home Medications and Allergies Home Medications Medication Instructions Recorded Confirmed Type Combivent Respimat 1 puff INHALATION DAILY 03/16/20 08/09/21 History fluticasone propion-salmeterol 1 inh INHALATION DAILY 03/16/20 08/09/21 History [Wixela Inhub] furosemide 20 mg PO DAILY 03/16/20 08/09/21 History metoprolol succinate 50 mg PO DAILY #30 tablet 03/18/20 08/09/21 Rx escitalopram oxalate 5 mg PO DAILY 08/04/21 08/09/21 History acetaminophen [Mapap 650 mg PO Q4H PRN #30 tablet 08/09/21 08/09/21 Rx (acetaminophen)] levalbuterol HCl 1.25 mg INHALATION Q6HRT PRN #30 ea 08/09/21 08/09/21 Rx potassium chloride 10 meq PO DAILY #0 tablet 08/09/21 08/09/21 Rx prednisone 40 mg PO DAILY@0800 2 Days #4 08/09/21 08/09/21 Rx tablet Allergies Allergy/AdvReac Type Severity Reaction Stat
[2021-08-10] MEDS: FUROSEMIDE 20 MG TABLET PO (09:48)
[2021-08-10] MEDS: ESCITALOPRAM OXALATE 5 MG TABLET PO (09:48)
[2021-08-10] MEDS: UMECLIDINIUM BROMIDE 62.5 MCG ELLIPTA 1 PUFF INHALATION (09:48)
[2021-08-10] MEDS: METOPROLOL SUCCINATE EXT REL 50 MG TABCR PO (09:49)
[2021-08-10] MEDS: predniSONE 20 MG TABLET 40 MG PO (09:49)
[2021-08-10] MEDS: POTASSIUM CHLORIDE 10 MEQ TABLET PO (09:49)
[2021-08-11] VITALS (9 sets, daily range): BP systolic 95–130; BP diastolic 58–71; PULSE 76–79; RESP 20–24; TEMP 36.3–36.9; O2SAT 97–100
[2021-08-11 07:54] LABS: Base Excess ABG 15.6 mmol/L (0-2); Device BIPAP; HCO3 ABG 43.2 mmol/L (23-29); Modified Allen's Test Pass; Oxygen Content ABG 16.6 %vol (16.0-22.0); Oxygen Saturation ABG 98.6 % (95-97); Oxyhemoglobin 97.9 % (94-100); PCO2 ABG 69.6 mmHg (35-45); Site Drawn RIGHT RADIAL; Total Hemoglobin 11.9 g/dL (12.0-18.0); pH ABG 7.41 (7.35-7.45)
[2021-08-11 07:55] LABS: Expiratory Pressure 8 cmH2O; Inspiratory Pressure 16 cmH2O
[2021-08-11] MEDS: predniSONE 20 MG TABLET 40 MG PO (08:20)
[2021-08-11] MEDS: POTASSIUM CHLORIDE 10 MEQ TABLET PO (08:20)
[2021-08-11] MEDS: LORATADINE 10 MG TABLET PO (09:03)
[2021-08-11] MEDS: METOPROLOL SUCCINATE EXT REL 50 MG TABCR PO (09:20)
[2021-08-11] MEDS: SALMET XINAFT/FLUTIC PROPIN 250 MCG/50 MCG INH CAP 1 PUFF INHALATION (09:20)
[2021-08-11] MEDS: FUROSEMIDE 20 MG TABLET PO (09:20)
[2021-08-11] MEDS: ESCITALOPRAM OXALATE 5 MG TABLET PO (09:20)
[2021-08-11] MEDS: UMECLIDINIUM BROMIDE 62.5 MCG ELLIPTA 1 PUFF INHALATION (09:21)
[2021-08-12] VITALS (11 sets, daily range): BP systolic 97–106; BP diastolic 53–59; PULSE 77–80; RESP 18–24; TEMP 36.4–36.7; O2SAT 95–98
[2021-08-12] MEDS: SALMET XINAFT/FLUTIC PROPIN 250 MCG/50 MCG INH CAP 1 PUFF INHALATION (09:10)
[2021-08-12] MEDS: FUROSEMIDE 20 MG TABLET PO (09:10)
[2021-08-12] MEDS: predniSONE 20 MG TABLET 40 MG PO (09:10)
[2021-08-12] MEDS: UMECLIDINIUM BROMIDE 62.5 MCG ELLIPTA 1 PUFF INHALATION (09:10)
[2021-08-12] MEDS: ESCITALOPRAM OXALATE 5 MG TABLET PO (09:11)
[2021-08-12] MEDS: LORATADINE 10 MG TABLET PO (09:11)
[2021-08-12] MEDS: POTASSIUM CHLORIDE 10 MEQ TABLET PO (09:11)
[2021-08-12] MEDS: LEVALBUTEROL NEB 1.25 MG/3 ML INHALATION ×2 (15:23→22:23)
[2021-08-12] MEDS: ACETAMINOPHEN 325 MG TABLET 650 MG PO (19:15)
[2021-08-13] VITALS (10 sets, daily range): BP systolic 103–113; BP diastolic 52–62; PULSE 74–113; RESP 16–24; TEMP 36.2–36.7; O2SAT 93–99
[2021-08-13] MEDS: LEVALBUTEROL NEB 1.25 MG/3 ML INHALATION ×2 (07:49→20:15)
[2021-08-13] MEDS: POTASSIUM CHLORIDE 10 MEQ TABLET PO (08:41)
[2021-08-13] MEDS: SALMET XINAFT/FLUTIC PROPIN 250 MCG/50 MCG INH CAP 1 PUFF INHALATION (08:41)
[2021-08-13] MEDS: UMECLIDINIUM BROMIDE 62.5 MCG ELLIPTA 1 PUFF INHALATION (08:41)
[2021-08-13] MEDS: FUROSEMIDE 20 MG TABLET PO (08:42)
[2021-08-13] MEDS: LORATADINE 10 MG TABLET PO (08:42)
[2021-08-13] MEDS: ESCITALOPRAM OXALATE 5 MG TABLET PO (08:42)
[2021-08-13] MEDS: predniSONE 20 MG TABLET 40 MG PO (08:42)
[2021-08-13] MEDS: METOPROLOL SUCCINATE EXT REL 50 MG TABCR PO (10:13)
[2021-08-14] VITALS (9 sets, daily range): BP systolic 111–119; BP diastolic 57–61; PULSE 68–87; RESP 16–26; TEMP 36.7–37.1; O2SAT 94–99
[2021-08-14 05:26] LABS: Base Excess ABG 14.1 mmol/L (0-2); HCO3 ABG 39.7 mmol/L (23-29); Oxygen Saturation ABG 97.6 % (95-97); Oxyhemoglobin 96.9 % (94-100); PCO2 ABG 55.2 mmHg (35-45); PO2 ABG 104.3 mmHg (80-90); Total Hemoglobin 10.9 g/dL (12.0-18.0); pH ABG 7.48 (7.35-7.45)
[2021-08-14 05:29] LABS: Modified Allen's Test Pass; Site Drawn RIGHT BRACHIAL
[2021-08-14 05:30] LABS: Device BIPAP
[2021-08-14 05:45] LABS: Anion Gap 3 mmol/L (8-16); Blood Urea Nitrogen 14 mg/dL (7-18); Calcium 8.4 mg/dL (8.5-10.1); Carbon Dioxide 41 mmol/L (21-32); Chloride 94 mmol/L (98-108); Estimated CRCL calculation 88 ml/min; Estimated Glomerular Filt Rate > 60; Glucose 100 mg/dL (70-99); Osmolality Calculated 286 mOsm/kg (285-295); Potassium 3.4 mmol/L (3.5-5.1); Sodium 138 mmol/L (136-145)
[2021-08-14] MEDS: predniSONE 20 MG TABLET 40 MG PO (08:30)
[2021-08-14] MEDS: POTASSIUM CHLORIDE 10 MEQ TABLET PO (08:31)
[2021-08-14] MEDS: UMECLIDINIUM BROMIDE 62.5 MCG ELLIPTA 1 PUFF INHALATION (09:00)
[2021-08-14] MEDS: SALMET XINAFT/FLUTIC PROPIN 250 MCG/50 MCG INH CAP 1 PUFF INHALATION (09:14)
[2021-08-14] MEDS: METOPROLOL SUCCINATE EXT REL 50 MG TABCR PO (09:15)
[2021-08-14] MEDS: ESCITALOPRAM OXALATE 5 MG TABLET PO (09:15)
[2021-08-14] MEDS: FUROSEMIDE 20 MG TABLET PO (09:15)
[2021-08-14] MEDS: LORATADINE 10 MG TABLET PO (09:15)
--- NOTE | 2021-08-14 09:38 | PM.EVENT ---
Event Note Event Note Event Note: 08/14/2019 Patient is encouraged that anytime she is sleeping she needs to put her CPAP on. ABG results Test Result Flag Reference Site ABG pH 7.48 H 7.35-7.45 SL ABG pCO2 55.2 H 35-45 mmHg SL ABG pO2 104.3 H 80-90 mmHg SL ABG HCO3 39.7 H 23-29 mmol/L SL ABG Base Excess 14.1 H 0-2 mmol/L SL ABG Oxygen Saturation 97.6 H 95-97 % SL Total Hgb 10.9 L 12.0-18.0 g/dL SL ABG Oxygen Content 15.0 L 16.0-22.0 %vol SL Oxyhemoglobin 96.9 94-100 % SL Site Drawn RIGHT BRACHIAL SL Device BIPAP SL Printed: 08/14/21 Patient: Ban Smith Emil Page: [phone] Acct: [id number] END OF REPORT
[2021-08-14] MEDS: LEVALBUTEROL NEB 1.25 MG/3 ML INHALATION (17:25)
[2021-08-15] VITALS (8 sets, daily range): BP systolic 105–121; BP diastolic 54–64; PULSE 74–94; RESP 16–20; TEMP 36.2–36.8; O2SAT 95–100
[2021-08-15] MEDS: LEVALBUTEROL NEB 1.25 MG/3 ML INHALATION (06:26)
[2021-08-15] MEDS: predniSONE 20 MG TABLET 40 MG PO (08:02)
[2021-08-15] MEDS: POTASSIUM CHLORIDE 10 MEQ TABLET PO (08:03)
[2021-08-15] MEDS: ESCITALOPRAM OXALATE 5 MG TABLET PO (09:02)
[2021-08-15] MEDS: UMECLIDINIUM BROMIDE 62.5 MCG ELLIPTA 1 PUFF INHALATION (09:02)
[2021-08-15] MEDS: METOPROLOL SUCCINATE EXT REL 50 MG TABCR PO (09:03)
[2021-08-15] MEDS: FUROSEMIDE 20 MG TABLET PO (09:03)
[2021-08-15] MEDS: LORATADINE 10 MG TABLET PO (09:07)
[2021-08-15] MEDS: SALMET XINAFT/FLUTIC PROPIN 250 MCG/50 MCG INH CAP 1 PUFF INHALATION (09:10)
[2021-08-16 05:19] LABS: Basophils Absolute Auto 0.01 K/mm3 (0.00-0.10); Basophils Percent Auto 0.1 % (0.0-1.0); Eosinophils Absolute Auto 0.06 K/mm3 (0.02-0.50); Eosinophils Percent Auto 0.7 % (1.0-6.0); Hematocrit 33.3 % (35.0-49.0); Immature Granulocyte Absolute 0.06 K/mm3 (0.00-0.00); Immature Granulocyte Percent A 0.7 % (0.0-0.0); Lymphocytes Absolute Auto 1.98 K/mm3 (1.10-4.50); Lymphocytes Percent Auto 24.6 % (18.0-42.0); Mean Corpuscular Hemoglobin 28.3 pg (27.0-31.0); Mean Corpuscular Volume 94.3 fL (78.0-102.0); Mean Platelet Volume 9.2 fl (9.2-11.8); Monocytes Absolute Auto 0.62 K/mm3 (0.10-0.90); Monocytes Percent Auto 7.7 % (2.0-11.0); Neutrophils Absolute Auto 5.3 K/mm3 (1.7-7.2); Neutrophils Percent Auto 66.2 % (50.0-70.0); Platelet Count Result 163 K/mm3 (150-420); Red Blood Count 3.53 M/mm3 (4.20-5.40); Red Cell Distribution Width 12.7 % (11.6-14.4); White Blood Count 8.1 K/mm3 (4.8-10.8)
[2021-08-16 05:29] LABS: Anion Gap 3 mmol/L (8-16); Blood Urea Nitrogen 13 mg/dL (7-18); Calcium 8.6 mg/dL (8.5-10.1); Carbon Dioxide 42 mmol/L (21-32); Chloride 93 mmol/L (98-108); Estimated CRCL calculation 82 ml/min; Estimated Glomerular Filt Rate > 60; Glucose 102 mg/dL (70-99); Osmolality Calculated 286 mOsm/kg (285-295); Potassium 3.7 mmol/L (3.5-5.1); Sodium 138 mmol/L (136-145)
[2021-08-16 08:00] VITALS: BP 114/56; PULSE 76; RESP 20; TEMP 36.6; O2SAT 100
[2021-08-16 08:24] VITALS: PULSE 76
[2021-08-16] MEDS: predniSONE 20 MG TABLET 40 MG PO (08:24)
[2021-08-16] MEDS: METOPROLOL SUCCINATE EXT REL 50 MG TABCR PO (08:24)
[2021-08-16] MEDS: POTASSIUM CHLORIDE 10 MEQ TABLET PO (08:25)
[2021-08-16] MEDS: ESCITALOPRAM OXALATE 5 MG TABLET PO (08:25)
[2021-08-16] MEDS: LORATADINE 10 MG TABLET PO (08:25)
[2021-08-16] MEDS: FUROSEMIDE 20 MG TABLET PO (08:26)
[2021-08-16] MEDS: UMECLIDINIUM BROMIDE 62.5 MCG ELLIPTA 1 PUFF INHALATION (08:47)
[2021-08-16] MEDS: SALMET XINAFT/FLUTIC PROPIN 250 MCG/50 MCG INH CAP 1 PUFF INHALATION (08:48)
--- NOTE | 2021-08-16 10:13 | PM.DS ---
DS: Admitting Diagnosis Discharge Date 08/16/2021 Admitting Diagnosis rehab DS: Discharge Diagnosis Discharge Diagnosis (1) Acute on chronic respiratory failure with hypoxia and hypercapnia: Code(s): J96.21 - Acute and chronic respiratory failure with hypoxia; J96.22 - Acute and chronic respiratory failure with hypercapnia Status: Acute Assessment and Plan: BiPap when sleeping 4 liters of Oxygen per nc while awake smoking cessation Nicotine patch if indicated monitor vitals and Labs encourage compliance Discharge Patient educated on the importance of using her BiPAP at bedtime (2) Hyponatremia: Code(s): E87.1 - Hypo-osmolality and hyponatremia Status: Acute Assessment and Plan: Monitor labs 130 Fluid restriction as needed IVF as needed Monitor for medication or causation of hyponatremia Discharge Within normal limits day of discharge (3) Weakness: Code(s): R53.1 - Weakness Status: Acute Assessment and Plan: Physical and occupation therapy to evaluate and treat fall precaution Call light within reach Educate patient rehabilitation construction specialist before you fall Adequate nutrition to keep up strength Discharge Patient ambulating 250 feet (4) COPD exacerbation: Code(s): J44.1 - Chronic obstructive pulmonary disease with (acute) exacerbation Status: Acute Assessment and Plan: Breathing treatment as prescribed BiPap when sleeping 4 liters of Oxygen per nc while awake smoking cessation Nicotine patch if indicated monitor vitals and Labs encourage compliance Discharge Stable continue use of 4 L nasal cannula and BiPAP at night DS: Summary Hospital Course Reason for hospitalization: rehab Hospital Course: 51-year-old female patient that was admitted as a SWING bed for strengthening. Patient has a past medical history of End stage COPD, Patient has home oxygen and a BIPAP at home that she was not using prior to hospital admission. Patient was found Hypercapnic and not arousable in which she has had few admission for this same reason in the past. Patient was admitted and treated with IV Solumedrol and oxygen with BiPAP with sleeping. Patient has a chronic history 4+ pitting edema bilaterally with lymphedema. Patient echo showed she has Diastolic indeterminate function due to tachycardia and pulmonary hypertension with a normal Ejection fracture. Patient will discharge home today with self-care she resides with her daughter. On discharge patient ambulating 250 feet on 4 L nasal cannula pushing with a walker. Time Spent with Patient Time attestation: Total time spent providing and/or coordinating discharge services: Exam Narrative: GENERAL: This is a well-nourished, well-developed patient, in no apparent distress. HEAD: normocephalic, atraumatic. EYES: PERRL. Sclera clear/white. Vision is grossly intact. EARS: External ears normal, auditory canals clear and without drainage, TMs normal without perforation. Hearing grossly intact. NOSE: External nose normal with no obvious nasal discharge, nares without redness, no rhinorrhea. THROAT: Mucous membranes moist, posterior pharynx clear. NECK: Neck supple, non-tender without lymphadenopathy, masses or thyromegaly. CARDIOVASCULAR: Regular rate and rhythm without murmurs, gallops, or rubs. RESPIRATORY: Clear to auscultation. Breath sounds equal bilaterally. No wheezes, rales, or rhonchi. GASTROINTESTINAL: Abdomen soft, non-tender, nondistended. Bowel sounds are active. No hepato-splenomegaly, or palpable masses. No guarding. SKIN: warm, intact with no suspicious lesions or rash, good texture and turgor. NEURO: awake, alert, and oriented to person, place and time. There were no obvious focal neurologic abnormalities. Steady gait EXTREMITIES: Normal range of motion. 1-2 + pitting edema edema chronic. No calf tenderness. BACK: Nontender without deformity or crepitance. No flank tenderness. DS: Data Data Completed an
[2021-08-16] MEDS: LEVALBUTEROL NEB 1.25 MG/3 ML INHALATION (14:43)
[2021-08-16 14:44] VITALS: PULSE 80; RESP 20; O2SAT 97
[2021-08-16 15:04] VITALS: PULSE 78; RESP 20; O2SAT 97
[2021-08-16 16:00] VITALS: BP 128/74; PULSE 80; RESP 18; TEMP 36.6; O2SAT 94
[2021-08-16 17:45] VITALS: O2SAT 95
--- NOTE | 2021-08-16 17:57 | PC.NURSE ---
1745 family here to pick her. transferred per wc to auto. o2 on @ 4l. daughter brought her her own o2. all personal items sent with her plus bi pap. instructions went over and she vocalizes an understanding.
--- NOTE | 2021-08-17 13:21 | PC.NURSE ---
Pt states she received and understood her discharge instructions. Pt has no other comments.
== END 2021-08-16 17:45 | disposition home or self-care (01) | DRG 947 ==
PROVIDERS: Nurse Practitioner; Nurse Practitioner Family; Admitting Provider Emergency Medicine; PCP Family Medicine; Visit Provider Emergency Medicine
DX: R53.1 Weakness (principal); J96.21 Acute and chronic respiratory failure with hypoxia; J44.1 Chronic obstructive pulmonary disease with (acute) exacerbation; E87.1 Hypo-osmolality and hyponatremia; I27.20 Pulmonary hypertension, unspecified; I89.0 Lymphedema, not elsewhere classified; Z99.81 Dependence on supplemental oxygen; Z86.718 Personal history of other venous thrombosis and embolism; Z22.7 Latent tuberculosis; Z87.891 Personal history of nicotine dependence
CPT/HCPCS: 36415; 36600; 80048; 82805; 85025; 94003; 94640; 94660; 97110; 97161; 97165; 97530; 97535; A9270; J7512

== ENCOUNTER 2021-10-03 13:43 | Observation (INO) | payer OTHER, SELFPAY ==
[2021-10-03] VITALS (17 sets, daily range): BP systolic 132–161; BP diastolic 58–75; PULSE 70–103; RESP 16–32; TEMP 36.4–37.1; O2SAT 79–100; BMI 28.8
--- NOTE | ~2021-10-03 | CT_ITS ---
EXAMINATION: CT brain wo con EXAM DATE: 10/03/2021 14:44 INDICATION: Altered mental status, nonverbal but alert, edema, SOB TECHNIQUE: Spiral CT of the head was performed without contrast. Axial, coronal and sagittal images were reviewed. The dose-length product (DLP) for this examination was 605.33 mGy-cm. The exposure w as tailored according to patient size, and iterative reconstruction (ASIR) was used as additional dos e reduction technique. Comparison is made to prior examination from 08/06/2021. FINDINGS: There is no acute intraparenchymal hemorrhage. No evidence of intraparenchymal brain mass lesion. No evidence of acute infarction. Mild microangiopathy. There is no mass effect or midline sh ift. The ventricles are normal in size. There are no extra-axial collections. There are no acute c alvarial fractures. The orbits are unremarkable. Soft tissue is unremarkable. The visualized sinuse s and mastoid air cells are well aerated. IMPRESSION: 1. No acute intracranial findings. 2. Mild microangiopathy. Reviewed, dictated and finalized at location B.
--- NOTE | ~2021-10-03 | CT_ITS ---
EXAMINATION: CTA chest PE protocol DATE: 10/03/2021 15:32 INDICATION: Shortness of breath. TECHNIQUE: Computed tomography angiography (CTA) of the chest was performed with 100 mL Omnipaque-350 intravenous contrast timed to evaluate the pulmonary arteries. Coronal maximum intensity projection 3D-reconstructions were created by the technologist. Automated exposure control and iterative reconst ruction technique were employed. The dose-length product was 306.27 mGy-cm. COMPARISON: Chest CT 03/16/2020 FINDINGS: There is severe emphysema. There is mild atelectasis bilaterally. There is mild scarring at the lung apices. No pleural effusion. The heart size is normal. There are coronary artery calcificat ions. No pericardial effusion. There is no pulmonary embolus. There is thoracic dextroscoliosis and m oderate spondylosis. There are chronic compression fractures of T7, T9, T10, and T11. IMPRESSION: 1. No pulmonary embolus. 2. Severe emphysema. Reviewed, dictated and finalized at location A.
--- NOTE | ~2021-10-03 | XR_ITS ---
XR chest 1V portable DATE: 10/03/2021 14:45 INDICATION: Shortness of breath. Altered mental status. History of COPD. TECHNIQUE: Portable upright AP view on 10/03/2021 at 1444 hours COMPARISON: August 07, 2021 AP and lateral chest FINDINGS: Heart size is normal. Is aortic calcification. No hilar or mediastinal enlargement. Bilateral hyperinflation. No pulmonary consolidation, pleural effusion, pulmonary vascular congestion or pneumothorax is detected. There is dextroscoliosis of the thoracic spine. Moderate biconcavity of T9 vertebral body. Diffuse osteopenia. IMPRESSION: No active cardiopulmonary disease Reviewed, dictated and finalized at location A.
--- NOTE | 2021-10-03 13:47 | ED.AMS ---
HPI - Altered Mental Status General Chief Complaint: Altered Mental Status Stated Complaint: Ambulance Time Seen by Provider: 10/03/21 13:47 Source: patient History of Present Illness HPI narrative: 61-year-old female, 84 pack year smoking history, chronic respiratory failure on home oxygen, COPD, HEDY on BiPAP, DVT, lymphedema, HFpEF presents to the ER with -- altered mental status with increased drowsiness hallucinations. She received a dose of Xanax last night. -- Chronic shortness of breath for which she is on bronchodilators and supplemental oxygen -- chronic leg swelling -- urinary incontinence blood sugar was noted to be stable. MD complaint: altered mental status Onset (ago): day(s) ( altered mental status since last night) Timing confirmed by: family member Severity: mild Context: COPD and other ( After taking 1st tablet of Xanax.) Associated symptoms: denies other symptoms, cough, shortness of breath and incontinence Treatments prior to arrival: oxygen Related Data Home Medications Medication Instructions Recorded Confirmed Combivent Respimat 1 puff INHALATION DAILY 03/16/20 10/03/21 fluticasone propion-salmeterol 1 inh INHALATION DAILY 03/16/20 10/03/21 [Wixela Inhub] furosemide 20 mg PO DAILY 03/16/20 10/03/21 escitalopram oxalate 5 mg PO DAILY 08/04/21 10/03/21 alprazolam 0.5 mg PO HS PRN 10/03/21 10/03/21 Allergies Allergy/AdvReac Type Severity Reaction Status Date / Time No Known Allergies Allergy Verified 10/03/21 13:59 Review of Systems Review of Systems: All systems reviewed & are unremarkable except as noted in HPI and below Constitutional: Constitutional: Reports as per HPI, Reports no additional constitutional complaints and Reports weakness Eyes: Eyes: Reports as per HPI and Reports no additional eye complaints ENT: Reports system reviewed and no additional complaints, except as documented Cardiovascular: Cardiovascular: Reports as per HPI and Reports no additional cardiovascular complaints Respiratory: Respiratory: Reports no additional respiratory complaints, Reports cough and Reports dyspnea Gastrointestinal: Gastrointestinal: Reports as per HPI and Reports no additional gastrointestinal complaints Genitourinary: Genitourinary: Reports no additional female genitourinary complaints and Reports urinary incontinence Musculoskeletal: Musculoskeletal: Reports no additional musculoskeletal complaints and Reports as per HPI Integumentary/Breasts: Skin/Breast: Reports system reviewed and no additional complaints, except as docu and Reports as per HPI Comments: Chronic venous stasis changes both legs Neurologic: Reports system reviewed and no additional complaints, except as documented and Reports as per HPI Psychiatric: Psychiatric: Reports no additional psychiatric complaints and Reports as per HPI Endocrine: Endocrine: Reports no additional endocrine complaints and Reports as per HPI Hematologic/Lymphatic: Hematologic/Lymphatic: Reports no additional hematologic/lymphatic complaints and Reports as per HPI Allergic/Immunologic: Allergic/Immunologic: Reports no additional allergic/immunologic complaints and Reports as per HPI PMFSH Past Medical History Medical History (Updated 10/03/21 @ 16:35 by Bud Mack MD) Chronic respiratory failure with hypoxia, on home O2 therapy COPD (chronic obstructive pulmonary disease) DVT (deep venous thrombosis) Latent tuberculosis Surgical History Surgical History Hx of cholecystectomy Family History Family History Mother Diabetes mellitus, Onset Age: 75 Cerebrovascular accident, Onset Age: 75 Father , of pneumonia Diabetes mellitus, Onset Age: 79 Sibling Dementia Cerebrovascular accident Diabetes mellitus Social History Social History (Reviewed 10/03/21 @ 14:06 by Bud Hoang
--- NOTE | 2021-10-03 13:55 | ECG_ITS ---
Measurements Intervals Lester Rate: 73 P: 104 CT: 170 QRS: 88 QRSD: 105 T: 81 QT: 369 QTc: 407 Interpretive Statements SINUS RHYTHM BASELINE ARTIFACT BORDERLINE ECG COMPARED TO ECG 08/04/2021 01:55:20 NO SIGNIFICANT CHANGES Electronically Signed On 10-03-2021 15:32:39 CDT by Cristopher Matthew M.D.
[2021-10-03 14:14] LABS: Base Excess ABG 9.9 mmol/L (0-2); Oxygen Content ABG 15.8 %vol (16.0-22.0); Oxygen Saturation ABG 97.6 % (95-97); Oxyhemoglobin 96.8 % (94-100); PO2 ABG 111.2 mmHg (80-90); Total Hemoglobin 11.5 g/dL (12.0-18.0); pH ABG 7.22 (7.35-7.45)
[2021-10-03 14:15] LABS: Device NASAL CANNULA; Liters per Minute 4.5 LPM; Modified Allen's Test Pass; Site Drawn LEFT RADIAL
[2021-10-03 14:16] LABS: PCO2 ABG 102.4 mmHg (35-45)
[2021-10-03 14:19] LABS: Add Urine Microscopic? YES; Appearance Urine Sl Cloudy (Clear); Bilirubin Urine Negative (Negative); Blood Urine 2+ (Negative); Color Urine Yellow (Yellow); Glucose Urine UA Negative (Negative); Ketones Urine Negative (Negative); Leukocyte Esterase Ur Trace (Negative); Nitrate Urine Negative (Negative); Protein Urine 1+ (Negative); Specific Grav Ur >= 1.030 (1.010-1.020); Urobilinogen Urine 0.2 mg/dL (0.2-1.0)
[2021-10-03 14:21] LABS: Basophils Absolute Auto 0.02 K/mm3 (0.00-0.10); Basophils Percent Auto 0.4 % (0.0-1.0); Eosinophils Absolute Auto 0.08 K/mm3 (0.02-0.50); Eosinophils Percent Auto 1.6 % (1.0-6.0); Hematocrit 38.7 % (35.0-49.0); Immature Granulocyte Absolute 0.01 K/mm3 (0.00-0.00); Immature Granulocyte Percent A 0.2 % (0.0-0.0); Immature Platelet Fraction Pct 2.3 % (1.0-7.0); Lymphocytes Absolute Auto 0.62 K/mm3 (1.10-4.50); Lymphocytes Percent Auto 12.2 % (18.0-42.0); Mean Corpuscular HGB Conc 28.4 g/dL (32.0-36.0); Mean Corpuscular Hemoglobin 28.8 pg (27.0-31.0); Mean Corpuscular Volume 101.3 fL (78.0-102.0); Mean Platelet Volume 9.3 fl (9.2-11.8); Monocytes Absolute Auto 0.42 K/mm3 (0.10-0.90); Monocytes Percent Auto 8.2 % (2.0-11.0); Neutrophils Percent Auto 77.4 % (50.0-70.0); Platelet Count Result 139 K/mm3 (150-420); Red Blood Count 3.82 M/mm3 (4.20-5.40); Red Cell Distribution Width 13.2 % (11.6-14.4); White Blood Count 5.1 K/mm3 (4.8-10.8)
[2021-10-03 14:32] LABS: WBC Clumps Urine Present /hpf; WBC Urine 16-20 /hpf (0-3)
[2021-10-03 14:33] LABS: Bacteria Urine 3+ /hpf; Squamous Epithelial Cell Urine None seen /hpf (Few)
[2021-10-03 14:37] LABS: Lactic Acid Reflex 0.8 mmol/L (0.4-2.0)
[2021-10-03 14:40] LABS: Alanine Aminotransferase 14 U/L (14-59); Albumin Level 3.4 g/dL (3.4-5.0); Alkaline Phosphatase 93 U/L (46-116); Aspartate Amino Transferase 10 U/L (15-37); Bilirubin,Total 0.3 mg/dL (0.00-1.00); Blood Urea Nitrogen 14 mg/dL (7-18); Calcium 9.1 mg/dL (8.5-10.1); Chloride 98 mmol/L (98-108); Estimated CRCL calculation 85 ml/min; Estimated Glomerular Filt Rate > 60; Glucose 127 mg/dL (70-99); NT Pro B Type Natriuretic Pept 177 pg/mL (0-125); Osmolality Calculated 294 mOsm/kg (285-295); Potassium 5.5 mmol/L (3.5-5.1); Sodium 141 mmol/L (136-145); Thyroid Stimulating Hormone 0.17 uIU/mL (0.36-3.74); Total Protein 6.5 g/dL (6.4-8.2); Troponin I 8.6 ng/L (0.00-60.4)
[2021-10-03 14:51] LABS: SARS-CoV-2 Ag Negative (Negative)
[2021-10-03 14:51] LABS: Influenza Control Valid (Valid)
[2021-10-03 14:52] LABS: Carbon Dioxide > 45 mmol/L (21-32)
--- NOTE | 2021-10-03 16:16 | PC.NURSE ---
pt repositioned for comfort. adult protector dry at this time. sip of water provided. awaiting test results.
--- NOTE | 2021-10-03 17:00 | PC.NURSE ---
daughter Keyla arrived to bedside. erp speaking with her and pt about plan of care.
[2021-10-03] MEDS: methylPREDNISolone SOD SUCC 125 MG VIAL IV PUSH (17:33)
[2021-10-03] MEDS: SODIUM CHLORIDE 0.9% IV 1,000 ML 500 ML IV CONT (17:36)
[2021-10-03] MEDS: IPRATROPIUM 0.5 MG/ALBUTEROL SULFATE 2.5 MG AMPUL.NEB 3 ML INHALATION ×2 (18:29→23:35)
--- NOTE | 2021-10-03 19:34 | ADMGEN ---
1829 This patient, Ban Smith, was admitted to 2nd Floor Room 207-2 COPD exacerbation and uti. came to floor on 4-5 liters o2 sat 100%. cleaned patient up of incont urine. alert and orient at this time. wants food NOW. Patient/family oriented to hospital policies and general routines including ID bracelet, bed and alarms, visiting hours, pain management, procedures, bathroom and other care routines, personal items, smoking policy, room service/diet, and visiting hours. Information on how to activate the Rapid Response Team has been discussed. Patient/Family are encouraged to report perceived risks to care and to ask questions if they do not understand what they are told or what they should do.
[2021-10-03] MEDS: ACETAMINOPHEN 325 MG TABLET 650 MG PO (20:14)
[2021-10-04] VITALS (13 sets, daily range): BP systolic 91–151; BP diastolic 60–76; PULSE 20–121; RESP 18–84; TEMP 36.4–37; O2SAT 91–100
[2021-10-04] MEDS: methylPREDNISolone SOD SUCC 40 MG VIAL IV PUSH ×3 (01:00→18:13)
[2021-10-04] MEDS: LEVALBUTEROL NEB 1.25 MG/3 ML INHALATION (04:54)
--- NOTE | 2021-10-04 05:10 | PC.NURSE ---
Pt's O2 titrated from 4L to 3L after pt's spO2 at 99%.
[2021-10-04 05:27] LABS: Hematocrit 36.8 % (35.0-49.0); Hemoglobin 10.7 g/dL (12.0-15.0); Mean Corpuscular HGB Conc 29.1 g/dL (32.0-36.0); Mean Corpuscular Hemoglobin 28.6 pg (27.0-31.0); Mean Corpuscular Volume 98.4 fL (78.0-102.0); Mean Platelet Volume 9.4 fl (9.2-11.8); Platelet Count Result 124 K/mm3 (150-420); Red Blood Count 3.74 M/mm3 (4.20-5.40); Red Cell Distribution Width 13.2 % (11.6-14.4); White Blood Count 3.2 K/mm3 (4.8-10.8)
[2021-10-04 05:36] LABS: Anion Gap -3 mmol/L (8-16); Band Neutrophils Percent 0 % (0-6); Basophils Percent Manual 0 % (0-1); Blood Urea Nitrogen 16 mg/dL (7-18); Calcium 8.9 mg/dL (8.5-10.1); Carbon Dioxide 45 mmol/L (21-32); Chloride 95 mmol/L (98-108); Eosinophils Percent Manual 0 % (1-6); Estimated CRCL calculation 91 ml/min; Estimated Glomerular Filt Rate > 60; Glucose 162 mg/dL (70-99); Lymphocytes Absolute Manual 0.22 K/mm3 (1.1-4.5); Lymphocytes Percent Manual 7 % (18-44); Monocytes Absolute Manual 0.06 K/mm3 (0.1-0.90); Monocytes Percent Manual 2 % (3-9); Neutrophils Absolute Manual 2.91 K/mm3 (1.7-7.2); Neutrophils Percent Manual 91 % (46-73); Osmolality Calculated 289 mOsm/kg (285-295); Platelet Estimate Adequate (Adequate); Potassium 4.4 mmol/L (3.5-5.1); Sodium 137 mmol/L (136-145); Total Cells Counted 100
--- NOTE | 2021-10-04 06:15 | PC.NURSE ---
Pt O2 level rechecked on 3L and SPO2 at 93%
[2021-10-04 06:41] LABS: Magnesium 1.2 mg/dL (1.8-2.4)
[2021-10-04 07:39] LABS: Base Excess ABG 15.9 mmol/L (0-2); HCO3 ABG 45.1 mmol/L (23-29); Oxygen Content ABG 17.8 %vol (16.0-22.0); Oxygen Saturation ABG 90.3 % (95-97); Oxyhemoglobin 89.2 % (94-100); PO2 ABG 51.8 mmHg (80-90); Total Hemoglobin 14.2 g/dL (12.0-18.0); pH ABG 7.39 (7.35-7.45)
[2021-10-04 07:40] LABS: Device NASAL CANNULA; Modified Allen's Test Pass; PCO2 ABG 77.1 mmHg (35-45); Site Drawn LEFT RADIAL
--- NOTE | 2021-10-04 08:23 | PM.IMHP ---
H&P: HPI History of Present Illness Date/Time: 10/04/21 08:23 This is a 61 year old female that has a past medical history of COPD with Emphysema, 84 pack year smoking history, chronic respiratory failure on home oxygen, COPD, HEDY on BiPAP, DVT, lymphedema, Patient has altered mental status with increased drowsiness and she has had hallucinations for week due to refusal of BIPAP and CPAP use. According to daughter her CO2 has been so high she is confused. Patient is a DNR and does not want heroic measures. Patient in April her Sister in May and her brother is sick on hospice and she has been going down hill since. The night prior to coming in patient was stared on xanax she was drool and very lethargic and Keyla daughter states she thought she saw her eyes roll in the back of her head and it made her scared and she called 911 because she did not know what to do. Mrs Smith has lymphedema and urinary incontinence. Patient's initial visit to the emergency room WBCs 5.1, hemoglobin 11, platelets 139, sodium 141, potassium 5.5, troponins 8.6, ABGs pH 7.22, PCO2 102.4, PO2 111, bicarb 41 on 5 L of oxygen patient refusing CPAP and BiPAP. Patient currently a DNR that his family does not want her transferred. Today patient's ABG pH 7.39, PCO2 77.1, PO2 51.8, bicarb 45.1. Patient continues to refuse the CPAP and BiPAP she takes the oxygen off on her own she is alert and oriented with hallucinations. Had a long discussion with patient informing her daughter Keyla makes her decisions in which I called the p.o.a had a discussion with her we discussed hospice at this time patient would like to be referred to hospice and she clearly understands that her mother's condition is terminal and her mother informed her she does not want intubation patient or anything extraordinary at this time. Patient continues to yell out screaming for her daughter as well as talking to people that are not there. Patient is alert and oriented and can tell you any information that you ask but she is seeing people. Chief Complaint: Hypercapnia , COPD Uti Review of Systems Review of Systems: hypercapnia, Shortness of breath, Lymphedema All systems reviewed & are unremarkable except as noted in HPI and below PMFSH Past Medical History Medical History Chronic respiratory failure with hypoxia, on home O2 therapy COPD (chronic obstructive pulmonary disease) DVT (deep venous thrombosis) Latent tuberculosis Surgical History Surgical History Hx of cholecystectomy Family History Family History Mother Diabetes mellitus, Onset Age: 75 Cerebrovascular accident, Onset Age: 75 Father , of pneumonia Diabetes mellitus, Onset Age: 79 Sibling Dementia Cerebrovascular accident Diabetes mellitus Social History Social History Social History: The patient is a former smoker. She smoked up to 2 packs of cigarettes per day for 42 years. She quit smoking in July 2017. She was never much of a drinker. She has not drink any alcohol in several years. She denies illicit substance use. Primary care physician: Dr. Damien Keyes Code status: Full code Smoking packs per day: 1 Smoking cigarettes per day: 20.0 Years smoked: 40 Smoking pack-years: 40.00 Smoking status: Former smoker Tobacco type: cigarettes Second hand tobacco smoke exposure: Yes Alcohol intake: former Substance use: never Substance use type: does not use Additional living arrangements comments: she lives at home with her . Her daughter and 2 grandchildren lives with them and helps them out as her requires significant care. she also has another daughter with 4 oth
[2021-10-04] MEDS: ALBUTEROL SULFATE (*SP) INHALER 2 PUFF INHALATION (08:30)
[2021-10-04] MEDS: FUROSEMIDE 20 MG TABLET PO (08:30)
[2021-10-04] MEDS: ESCITALOPRAM OXALATE 5 MG TABLET PO (08:30)
[2021-10-04] MEDS: hydrOXYzine HCL 25 MG TABLET PO ×2 (08:30→14:45)
[2021-10-04] MEDS: ENOXAPARIN 40 MG/0.4 ML SYRINGE SUB-Q (08:30)
[2021-10-04] MEDS: IPRATROPIUM 0.5 MG/ALBUTEROL SULFATE 2.5 MG AMPUL.NEB 3 ML INHALATION ×3 (12:44→23:52)
[2021-10-04] MEDS: ACETAMINOPHEN 325 MG TABLET 650 MG PO (16:43)
[2021-10-05] VITALS (8 sets, daily range): BP systolic 174; BP diastolic 86; PULSE 99–125; RESP 16–25; TEMP 37.1; O2SAT 96–100
[2021-10-05] MEDS: methylPREDNISolone SOD SUCC 40 MG VIAL IV PUSH ×2 (01:57→09:36)
[2021-10-05] MEDS: hydrOXYzine HCL 25 MG TABLET PO (04:16)
[2021-10-05] MEDS: IPRATROPIUM 0.5 MG/ALBUTEROL SULFATE 2.5 MG AMPUL.NEB 3 ML INHALATION ×2 (06:26→13:08)
--- NOTE | 2021-10-05 08:38 | PM.DS ---
DS: Admitting Diagnosis Discharge Date 10/05/2021 Admitting Diagnosis Hypercapnia, COPD Exacerbation DS: Discharge Diagnosis Discharge Diagnosis (1) Respiratory failure with hypoxia and hypercapnia: Qualifiers: Chronicity: acute Qualified Code(s): J96.01 - Acute respiratory failure with hypoxia; J96.02 - Acute respiratory failure with hypercapnia Code(s): J96.91 - Respiratory failure, unspecified with hypoxia; J96.92 - Respiratory failure, unspecified with hypercapnia Status: Acute Assessment and Plan: --Patient is refusing to wear CPAP/BIPAP -- CO2 112..77.6...67.6 -- Consult hospice -- Oxygen at all time -- ABG in the morning improving ..... PC02 is 67.6 (2) UTI (urinary tract infection): Qualifiers: Hematuria presence: without hematuria Urinary tract infection type: acute cystitis Qualified Code(s): N30.00 - Acute cystitis without hematuria Code(s): N39.0 - Urinary tract infection, site not specified Status: Acute Assessment and Plan: --UA send off culture -- IV Rocephin -- Increase Fluids -- will send home with Bactrim (3) COPD exacerbation: Code(s): J44.1 - Chronic obstructive pulmonary disease with (acute) exacerbation Status: Acute Assessment and Plan: Going home on Hospice (4) Hallucination: Code(s): R44.3 - Hallucinations, unspecified Status: Acute Assessment and Plan: --- Due to oxygen deprived and retaining co2 -- Encourage patient to wear CPAP and BIPAP -- Oxygen at all time -- ABG are improving CO2 67.6 (5) Altered mental status: Qualifiers: Altered mental status type: disorientation Qualified Code(s): R41.0 - Disorientation, unspecified Code(s): R41.82 - Altered mental status, unspecified Status: Acute Assessment and Plan: --- Due to oxygen deprived and retaining co2 -- Encourage patient to wear CPAP and BIPAP -- Oxygen at all time -- ABG in the morning improving Patient going home on hospice DS: Summary Hospital Course Reason for hospitalization: Hypercapnic and Urinary tract infection Hospital Course: This is a 61-year-old female that was admitted to the hospital with COPD exacerbation with hypercapnia. Patient in the emergency room was found to have a urinary tract infection she also has a chronic history of lymphedema patient has been hallucinating for months due to not wearing her BiPAP at home and not wanting to be a full code at this time. Patient was treated with IV antibiotics placed on a CPAP and BiPAP but patient refused so placed her on 5 L of oxygen. After a long discussion with family members they have decided that at this time patient will go home on hospice as patient does not want to wear her CPAP or BiPAP. Patient will go home on hospice with medication she will be treated for her urinary tract infection as well labs were checked this morning potassium 3.9 sodium 136 BUN 16, creatinine 0.58, glucose is 143, white blood count is 4.6, hemoglobin is 10.2, hematocrit 34%, platelets 137 ABGs were completed patient's pH is 7.43 originally 7.22, PCO2 today 67.6 originally 112, patient is looking and sounding better she was also started on some Atarax as her blood pressure was slightly low and concern was due to low blood pressure patient seemed to tolerate the Atarax without any difficulties and no residual effect of high tension she was able to relax and was not yelling out was able to tolerate her nasal cannula oxygen. Patient seems to be doing better although she is still hallucinating but she is alert and oriented. At this time patient's POA is in agreement all the supplies are at the home hospice nurse Ailyn has come visit with the patient as well as taking her prescription to the pharmacy for her family patient will discharge later on today Time Spent with Patient Time attestation: Total time spent providing and/or coordinating discharge serv
[2021-10-05 08:52] LABS: Hemoglobin 10.2 g/dL (12.0-15.0); Mean Corpuscular Hemoglobin 28.5 pg (27.0-31.0); Mean Platelet Volume 9.7 fl (9.2-11.8); Platelet Count Result 137 K/mm3 (150-420); Red Blood Count 3.58 M/mm3 (4.20-5.40); Red Cell Distribution Width 13.3 % (11.6-14.4); White Blood Count 4.6 K/mm3 (4.8-10.8)
[2021-10-05 09:00] LABS: Anion Gap -2 mmol/L (8-16); Blood Urea Nitrogen 16 mg/dL (7-18); Calcium 8.8 mg/dL (8.5-10.1); Carbon Dioxide 44 mmol/L (21-32); Chloride 94 mmol/L (98-108); Estimated CRCL calculation 93 ml/min; Estimated Glomerular Filt Rate > 60; Glucose 143 mg/dL (70-99); Osmolality Calculated 285 mOsm/kg (285-295); Potassium 3.9 mmol/L (3.5-5.1); Sodium 136 mmol/L (136-145)
[2021-10-05] MEDS: ESCITALOPRAM OXALATE 5 MG TABLET PO (09:36)
[2021-10-05] MEDS: FUROSEMIDE 20 MG TABLET PO (09:36)
[2021-10-05] MEDS: METOPROLOL SUCCINATE EXT REL 50 MG TABCR PO (09:36)
[2021-10-05 09:51] LABS: HCO3 ABG 44.2 mmol/L (23-29); Oxygen Content ABG 14.9 %vol (16.0-22.0); Oxyhemoglobin 95.1 % (94-100); PCO2 ABG 67.6 mmHg (35-45); Total Hemoglobin 11.1 g/dL (12.0-18.0); pH ABG 7.43 (7.35-7.45)
[2021-10-05 09:52] LABS: Device NASAL CANNULA; Modified Allen's Test Pass; Site Drawn LEFT RADIAL
--- NOTE | 2021-10-05 13:35 | PC.NURSE ---
Report given to [facility]. Pt transferred to [facility] for transport home on hospice.
--- NOTE | 2021-10-09 10:52 | PC.NURSE ---
Unable to contact for discharge call back.
== END 2021-10-05 13:40 | disposition hospice, home (50) ==
LOC: CHSED 13:45 → CHS2ND 17:27
PROVIDERS: Nurse Practitioner Family; Admitting Provider Internal Medicine; Emergency Provider Internal Medicine Critical Care Medicine; PCP Family Medicine; Visit Provider Internal Medicine
DX: J96.21 Acute and chronic respiratory failure with hypoxia (principal); J96.22 Acute and chronic respiratory failure with hypercapnia; N39.0 Urinary tract infection, site not specified; J44.9 Chronic obstructive pulmonary disease, unspecified; G47.33 Obstructive sleep apnea (adult) (pediatric); R44.3 Hallucinations, unspecified; Z86.718 Personal history of other venous thrombosis and embolism; Z87.891 Personal history of nicotine dependence; Z99.81 Dependence on supplemental oxygen; Z20.822 Contact with and (suspected) exposure to COVID-19
CPT/HCPCS: 36415; 36600; 70450; 71045; 71275; 80048; 80053; 81001; 82805; 83605; 83735; 83880; 84443; 84484; 85025; 85027; 85055; 85380; 87040; 87426; 87804; 93005; 94002; 94003; 94640; 94660; 96361; 96365; 96372; 96374; 96375; 96376; 99285; A9270; C9803; G0378; J0696; J1650; J2920; J2930; J7030; Q9967